=== PATIENT | female | born 1930 | race Caucasian/White ===

== ENCOUNTER 2016-06-13 11:48 | Inpatient (IN) | payer OTHER, MEDICARE ==
[~2016-06-13] VITALS: Ht 160 cm; Wt 75.2 kg
[~2016-06-13 11:48] MED LIST: BP MED
[2016-06-13 11:54] VITALS: BP 140/67; PULSE 86; RESP 18; TEMP 98.8; O2SAT 96
--- NOTE | 2016-06-13 12:07 | PD ---
HPI Chief Complaint: Injury Time Seen by Provider: 12:07 Travel History International Travel<30 days: No Contact w/Intl Traveler<30days: No Traveled to known affect area: No History of Present Illness HPI 85-year-old female presents to the emergency department via EMS with complaint of a skin tear to her right lower leg that occurred today. She sat down into her walker and she scraped her leg causing a skin tear. She did not fall to the ground, hit her head, or lose consciousness. Denies paresthesias, loss of sensation, decreased range of motion, decreased strength to the affected extremity. Denies fever, chills, nausea, vomiting. Reports being up-to-date on her tetanus vaccination. Patient lives at home alone and has no one helping take care of her. Patient has extremely foul odor and is disheveled. She has a wound to the top of her right foot and she says it is from her shoes. History of hypertension. Dr. Sen is primary care provider. [facility] Past Medical History Blood Disorders: No Cancer: No Cardiovascular Problems: Yes Diminished Hearing: No Endocrine: No Genitourinary: No Hypertension: Yes Immune Disorder: No Musculoskeletal: No Neurologic: Yes Psychiatric: No Reproductive: No Respiratory: Yes Past Surgical History Abdominal Surgery: No Cardiac Surgery: No Ear Surgery: No Endocrine Surgery: No Genitourinary Surgery: No Gynecologic Surgery: No Thoracic Surgery: No Social History Alcohol Use: No Tobacco Use: No Substance Use: No Allergies-Medications (Allergen,Severity, Reaction): Coded Allergies: No Known Allergies (Verified , 11/20/08) Reported Meds & Prescriptions Reported Meds & Active Scripts Active Reported [Bp Med] Review of Systems Except as stated in HPI: all other systems reviewed are Neg Physical Exam Narrative GENERAL: Pleasant, Foul-smelling, disheveled, elderly female patient, in no acute distress; afebrile, nontoxic-appearing SKIN: Warm and dry. Right lateral taylor with small skin tear; areas without erythema, edema; with minimal amount of bright red drainage. Dorsal aspect of the right foot with what appears to be a pressure ulcer. Right lower extremity supple and nontender with sensory intact. Bilateral lower extremities with 2+ pitting edema; without erythema. Bilateral feet and toenails unkept. HEAD: Atraumatic. Normocephalic. EYES: Pupils equal and round. No scleral icterus. No injection or drainage. ENT: Mucosa pink and moist. Airway patent. NECK: Trachea midline. CARDIOVASCULAR: Regular rate and rhythm. No murmur appreciated. RESPIRATORY: No accessory muscle use. Breath Sounds clear and equal bilaterally. No retractions or tachypnea. GASTROINTESTINAL: Rounded. MUSCULOSKELETAL: No obvious deformities. No clubbing. No cyanosis. No edema. NEUROLOGICAL: Awake and alert. Oriented 3. No obvious cranial nerve deficits. Motor grossly within normal limits. Normal speech. PSYCHIATRIC: Appropriate mood and affect; insight and judgment normal. Data Data Last Documented VS Vital Signs Date Time Temp Pulse Resp B/P Pulse Ox O2 Delivery O2 Flow Rate FiO2 06/13/16 11:54 98.8 86 18 140/67 96 Orders Basic Metabolic Panel (Bmp) (06/13/16 12:09) Complete Blood Count With Diff (06/13/16 12:09) Wound Care (06/13/16 12:09) Wound Care (06/13/16 12:09) Electrocardiogram (06/13/16 13:29) B-Type Natriuretic Peptide (06/13/16 13:29) Ckmb (Isoenzyme) Profile (06/13/16 13:29) Troponin I (06/13/16 13:29) Act Partial Throm Time (Ptt) (06/13/16 13:29) Prothrombin Time / Inr (Pt) (06/13/16 13:29) Urinalysis - C+S If Indicated (06/13/16 13:29) Chest, Single Ap (06/13/16 13:29) Ct Brain W/O Iv Contrast(Rout) (06/13/16 13:29) Ct Cerv Spine W/O Contrast (06/13/16 13:29) Ecg Monitoring (06/13/16 13:29) Iv Access Insert/Monitor (06/13/16 13:29) Oximetry (06/13/16 13:29) Sodium Chloride 0.9% Flush (Ns Flush) (06/13/16 13:30) Ankle, Complete ([id number]) (06/13/16 ) Foot, Complete ([id number]) (06/13/16 ) Foot, Complete ([id number]) (06/13/16 ) Ankle, Complete ([id number]) (06/13/16 ) Hepatic Functional Panel (06/13/16 13:29) Blood Culture (06/13/16 13:36) Lactic Acid (06/13/16 13:36) Wound Culture And Gram Stain (06/13/16 13:49) Labs Laboratory Tests Test 06/13/16 06/13/16 06/13/16 12:20 13:40 13:45 White Blood Count 6.3 TH/MM3 Red Blood Count 4.72 MIL/MM3 Hemoglobin 12.4 GM/DL Hematocrit 37.9 % Mean Corpuscular Volume 80.3 FL Mean Corpuscular Hemoglobin 26.2 PG Mean Corpuscular Hemoglobin 32.6 % Concent Red Cell Distribution Width 15.0 % Platelet Count 266 TH/MM3 Mean Platelet Volume 7.3 FL Neutrophils (%) (Auto) 83.8 % Lymphocytes (%) (Auto) 6.9 % Monocytes (%) (Auto) 7.8 % Eosinophils (%) (Auto) 0.7 % Basophils (%) (Auto) 0.8 % Neutrophils # (Auto) 5.3 TH/MM3 Lymphocytes # (Auto) 0.4 TH/MM3 Monocytes # (Auto) 0.5 TH/MM3 Eosinophils # (Auto) 0.0 TH/MM3 Basophils # (Auto) 0.0 TH/MM3 CBC Comment DIFF FINAL Differential Comment Sodium Level 139 MEQ/L Potassium Level 4.9 MEQ/L Chloride Level 103 MEQ/L Carbon Dioxide Level 31.3 MEQ/L Anion Gap 5 MEQ/L Blood Urea Nitrogen 15 MG/DL Creatinine 0.95 MG/DL Estimat Glomerular Filtration 56 ML/MIN Rate Random Glucose 75 MG/DL Calcium Level 9.2 MG/DL Prothrombin Time 11.0 SEC Prothromb Time International 1.0 RATIO Ratio Activated Partial 27.5 SEC Thromboplast Time Lactic Acid Level 0.7 mmol/L MDM Medical Decision Making Medical Screen Exam Complete: Yes Emergency Medical Condition: Yes Medical Record Reviewed: Yes Differential Diagnosis Failure to thrive, skin tear, abrasion, pressure ulcer Narrative Course 85-year-old female arrives via EMS and appears to be unable to care for herself. She smells of urine and is disheveled. She has a skin tear to the right lower axillary. She has what appears to be a pressure ulcer from her shoe to the dorsal aspect of the right foot. The right lower extremity is supple and nontender to plus pedal pulses and sensory intact without erythema or edema. Bilateral toenails are unkept. Patient afebrile vital signs are stable. She denies fever, chills, nausea, vomiting. Bilateral lower extremities with 2+ pitting edema. History of hypertension. Dr. Sen is primary care provider. I initially evaluated the patient, and the patient will be moved to a medical bed for further treatment and evaluation and disposition will be decided by care provider assuming care. See their note for patient disposition. Luly Tucker Jun 13, 2016 12:07
[2016-06-13 12:33] LABS: AUTOMATED NEUTROPHIL # 5.3 TH/MM3 (1.8-7.7); BASOPHIL % 0.8 % (0.0-2.0); EOSINOPHIL % 0.7 % (0.0-4.0); HEMATOCRIT 37.9 % (35.0-46.0); HEMO FLAGS DIFF FINAL; LYMPH % 6.9 % (9.0-44.0); LYMPHOCYTE # 0.4 TH/MM3 (1.0-4.8); MEAN CELL VOLUME 80.3 FL (80.0-100.0); MEAN CORPUSCULAR HEMOGLOBIN 26.2 PG (27.0-34.0); MEAN CORPUSCULAR HGB CONC 32.6 % (32.0-36.0); MONO % 7.8 % (0.0-8.0); NEUT % 83.8 % (16.0-70.0); PLATELET COUNT 266 TH/MM3 (150-450); RED BLOOD COUNT 4.72 MIL/MM3 (4.00-5.30); WHITE BLOOD COUNT 6.3 TH/MM3 (4.0-11.0)
[2016-06-13 12:55] LABS: BICARBONATE 31.3 MEQ/L (21.0-32.0)
[2016-06-13 12:58] LABS: POTASSIUM 4.9 MEQ/L (3.5-5.1)
[2016-06-13] MEDS ORDERED: SODIUM CHLORIDE 0.9% FLUSH 5 ML FLUSH IVF PRN (13:30)
--- NOTE | 2016-06-13 13:43 | PD ---
Physical Exam Exam Limitations: Poor Historian Narrative Patient initially was seen in the ambulance [place]. Please see previous providers note. Patient reports that she can emergency department secondary to her feet that she reports they have been like this for 2-3 months. Patient states she is not seeing a nurse head for this. Patient denies any pain initially, however after examination patient reports tenderness in her bilateral ankles. Patient states she injured her right leg by scraping it on her wheelchair causing a small skin tear. Patient states she also irritation of her right foot that is not painful states secondary to her shoes. Patient states she has not seen her primary care doctor at almost 4 months. Patient reports dyspnea on exertion. Patient states she can walk approximately for 2 minutes before needing to rest for approximately 5 minutes. Patient reports is been going on since she had her stroke almost year ago. Patient reports she does have COPD as well. Patient initially denies any falls. However after patient's [id number] presents to the emergency department if she reports that she received a phone call this morning stating that the patient and found on the floor after a fall at her home. Patient states that she slipped trying to sit in her wheelchair causing the fall sometime last night. Patient denies chest pain, palpitations, shortness of breath outside of her normal, abdominal pain, loss of consciousness, headache, or numbness or tingling anywhere. GENERAL: Well-developed, overly nourished, in no acute distress, and non-ill appearing. SKIN: Warm and dry. Erythematous discoloration bilateral lower extremities. Skin tear noted on proximal anterior right taylor and chronic appearing ulcer versus calcium buildup dorsal aspect of right foot appears consistent from where her shoe has been rubbing it is open with scant drainage noted. HEAD: Atraumatic. Normocephalic. EYES: Pupils equal and round. EOMI. No scleral icterus. No injection or drainage. ENT: No nasal bleeding or discharge. Mucous membranes pink and moist. NECK: Trachea midline. Supple. No nuclear rigidity. CARDIOVASCULAR: Regular rate and rhythm. No murmur appreciated. Dorsal pulses 2+ intact bilaterally. RESPIRATORY: No accessory muscle use. No respiratory distress. Decreased breath sounds in scant expiratory wheezing noted throughout.. GASTROINTESTINAL: Abdomen soft, non-tender, nondistended. Hepatic and splenic margins not palpable. No pulsatile mass. MUSCULOSKELETAL: Obvious deformities bilateral toes with overgrown toenails. No clubbing. No cyanosis. 1+ pedal edema bilateral lower extremities. Hip: FROM and equal BL with passive flexion, extension, Abduction, Adduction, and internal/external rotation. Pulses equal BL distal to injury. Capillary refill less than 2 seconds distal to injury and equal BL. FROM distal to injury and equal BL. Strength distal to injury equal BL. NV intact distal to injury and equal BL. Plantar flexion and dorsal flexion equal BL. Dorsal pulses equal BL. NEUROLOGICAL: Awake and alert. No obvious cranial nerve deficits. Motor grossly within normal limits. Normal speech. PSYCHIATRIC: Appropriate mood and affect; insight and judgment normal. Data Data Last Documented VS Vital Signs Date Time Temp Pulse Resp B/P Pulse Ox O2 Delivery O2 Flow Rate FiO2 06/13/16 11:54 98.8 86 18 140/67 96 Orders Basic Metabolic Panel (Bmp) (06/13/16 12:09) Complete Blood Count With Diff (06/13/16 12:09) Wound Care (06/13/16 12:09) Wound Care (06/13/16 12:09) Electrocardiogram (06/13/16 13:29) B-Type Natriuretic Peptide (06/13/16 13:29) Ckmb (Isoenzyme) Profile (06/13/16 13:29) Troponin I (06/13/16 13:29) Act Partial Throm Time (Ptt) (06/13/16 13:29) Prothrombin Time / Inr (Pt) (06/13/16 13:29) Urinalysis - C+S If Indicated (06/13/16 13:29) Chest, Single Ap (06/13/16 13:29) Ct Brain W/O Iv Contrast(Rout) (06/13/16 13:29) Ct Cerv Spine W/O Contrast (06/13/16 13:29) Ecg Monitoring (06/13/16 13:29) Iv Access Insert/Monitor (06/13/16 13:29) Oximetry (06/13/16 13:29) Sodium Chloride 0.9% Flush (Ns Flush) (06/13/16 13:30) Ankle, Complete ([id number]) (06/13/16 ) Foot, Complete ([id number]) (06/13/16 ) Foot, Complete ([id number]) (06/13/16 ) Ankle, Complete ([id number]) (06/13/16 ) Hepatic Functional Panel (06/13/16 13:29) Blood Culture (06/13/16 13:36) Lactic Acid (06/13/16 13:36) Wound Culture And Gram Stain (06/13/16 13:49) CKMB (06/13/16 13:40) CKMB% (06/13/16 13:40) Piperacil-Tazo 3.375 Gm Premix (Zosyn 3. (06/13/16 16:00) Labs Laboratory Tests Test 06/13/16 06/13/16 06/13/16 12:20 13:40 13:45 White Blood Count 6.3 TH/MM3 Red Blood Count 4.72 MIL/MM3 Hemoglobin 12.4 GM/DL Hematocrit 37.9 % Mean Corpuscular Volume 80.3 FL Mean Corpuscular Hemoglobin 26.2 PG Mean Corpuscular Hemoglobin 32.6 % Concent Red Cell Distribution Width 15.0 % Platelet Count 266 TH/MM3 Mean Platelet Volume 7.3 FL Neutrophils (%) (Auto) 83.8 % Lymphocytes (%) (Auto) 6.9 % Monocytes (%) (Auto) 7.8 % Eosinophils (%) (Auto) 0.7 % Basophils (%) (Auto) 0.8 % Neutrophils # (Auto) 5.3 TH/MM3 Lymphocytes # (Auto) 0.4 TH/MM3 Monocytes # (Auto) 0.5 TH/MM3 Eosinophils # (Auto) 0.0 TH/MM3 Basophils # (Auto) 0.0 TH/MM3 CBC Comment DIFF FINAL Differential Comment Sodium Level 139 MEQ/L Potassium Level 4.9 MEQ/L Chloride Level 103 MEQ/L Carbon Dioxide Level 31.3 MEQ/L Anion Gap 5 MEQ/L Blood Urea Nitrogen 15 MG/DL Creatinine 0.95 MG/DL Estimat Glomerular Filtration 56 ML/MIN Rate Random Glucose 75 MG/DL Calcium Level 9.2 MG/DL Prothrombin Time 11.0 SEC Prothromb Time International 1.0 RATIO Ratio Activated Partial 27.5 SEC Thromboplast Time Total Bilirubin 0.6 MG/DL Direct Bilirubin 0.2 MG/DL Indirect Bilirubin 0.4 MG/DL Aspartate Amino Transf 44 U/L (AST/SGOT) Alanine Aminotransferase 28 U/L (ALT/SGPT) Alkaline Phosphatase 139 U/L Total Creatine Kinase 233 U/L Creatine Kinase MB 9.0 NG/ML Creatine Kinase MB % 3.9 % Troponin I 0.02 NG/ML B-Type Natriuretic Peptide 72 PG/ML Total Protein 7.0 GM/DL Albumin 2.5 GM/DL Lactic Acid Level 0.7 mmol/L [facility] Supervised Visit with GREGORIA: No Differential Diagnosis Cellulitis, osteomyelitis, wound infection, COPD exacerbation, CHF exacerbation , rhabdomyolysis, other Narrative Course Patient was seen and examined. Initial laboratory and radiological studies were obtained and reviewed. Discussed patient with Dr. Corbin, who saw and evaluated the patient is in agreement with plan of care and disposition. Physician Communication Physician Communication [id number] Reilly, who is agreeable to admit the patient. Diagnosis Primary Impression: Altered mental status Qualified Code: R41.82 - Altered mental status, unspecified altered mental status type Additional Impressions: Unwitnessed fall Wound infection Bilateral lower extremity edema Elevated CK Admitting Information Admitting Physician Requests: Admit Condition: Stable Rod Crockett Jun 13, 2016 13:43
[2016-06-13 14:26] LABS: APTT (PATIENT) 27.5 SEC (24.3-30.1)
[2016-06-13 14:31] LABS: INDIRECT BILIRUBIN 0.4 MG/DL (0.0-0.8); TOTAL BILIRUBIN ADULT 0.6 MG/DL (0.2-1.0)
--- NOTE | 2016-06-13 15:03 | RADRPT ---
EXAM DATE/TIME: 06/13/2016 14:09 [facility] COMPARISON: No previous studies available for comparison. INDICATIONS : Left ankle pain, swelling and redness. MEDICAL HISTORY : None. SURGICAL HISTORY : None. ENCOUNTER: Initial ACUITY: 2 weeks PAIN SCORE: 2/10 LOCATION: Right ankle FINDINGS: Severe periarticular soft tissue swelling is identified. The bony structures are intact without clear evidence of fracture. The bones are markedly demineraliz ed. There are no erosive or destructive changes. Hindfoot alignment appears intact. CONCLUSION: Soft tissue swelling without evidence of displaced fracture or dislocation. Significant bony demineralization. Vernon Almonte MD on June 13, 2016 at 14:59 Board Certified Radiologist. This report was verified electronically.
--- NOTE | 2016-06-13 15:08 | RADRPT ---
EXAM DATE/TIME: 06/13/2016 14:11 [facility] COMPARISON: No previous studies available for comparison. INDICATIONS : Right foot pain, swelling, redness. MEDICAL HISTORY : None. SURGICAL HISTORY : None. ENCOUNTER: Initial ACUITY: 2 weeks PAIN SCORE: 2/10 LOCATION: Right foot FINDINGS: Severe soft tissue swelling is identified extending from the ankle into the foot. The bony structures are markedly demineralized. The proximal interphalangeal joints of the great toe and second and third toes are ankylosed. Bony structures are otherwise intact. There are no destructive changes there is no evidence of acute fracture. CONCLUSION: Soft tissue swelling without clear evidence of fracture or destructive bone changes. Severe bone demineralization. 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 Vernon Almonte MD on June 13, 2016 at 15:03 Board Certified Radiologist. This report was verified electronically.
--- NOTE | 2016-06-13 15:09 | RADRPT ---
EXAM DATE/TIME: 06/13/2016 14:14 [facility] COMPARISON: No previous studies available for comparison. INDICATIONS : Pain, swelling, redness of left foot. MEDICAL HISTORY : None. SURGICAL HISTORY : None. ENCOUNTER: Initial ACUITY: 2 weeks PAIN SCORE: 2/10 LOCATION: Left foot FINDINGS: There is mild soft tissue swelling involving the ankle and hindfoot. Bones are significantly demineralized. Hammertoe deformity is identified at the second through fifth toes. Bony structures are intact without evidence of fracture, dislocation or destructive changes. CONCLUSION: Soft tissue swelling without evidence of acute fracture or destructive bone changes. Hammertoe deformity the toes. Vernon Almonte MD on June 13, 2016 at 15:05 Board Certified Radiologist. This report was verified electronically.
--- NOTE | 2016-06-13 15:10 | RADRPT ---
EXAM DATE/TIME: 06/13/2016 14:15 [facility] COMPARISON: No previous studies available for comparison. INDICATIONS : Left ankle pain, redness and swelling. MEDICAL HISTORY : None. SURGICAL HISTORY : None. ENCOUNTER: Initial ACUITY: 2 weeks PAIN SCORE: 1/10 LOCATION: Left ankle FINDINGS: There is marked soft tissue swelling of the ankle. The bony structures are intact. Ankle mortise is w ell-maintained. Bones are seen definitely demineralized. Arterial calcifications noted. CONCLUSION: Soft tissue swelling without evidence of acute fracture or destructive bone changes. Significant bone demineralization. Calcific atherosclerotic vascular disease. Vernon Almonte MD on June 13, 2016 at 15:07 Board Certified Radiologist. This report was verified electronically.
--- NOTE | 2016-06-13 15:33 | RADRPT ---
EXAM DATE/TIME: 06/13/2016 14:50 [facility] COMPARISON: No previous studies available for comparison. INDICATIONS : Trauma. Fall. RADIATION DOSE: 56.35 CTDIvol (mGy) MEDICAL HISTORY : Cardiovascular disease. Chronic obstructive pulmonary disease. Cerebrovascular disease. Hypertension. SURGICAL HISTORY : None. ENCOUNTER: Initial ACUITY: 1 day PAIN SCALE: 0/10 LOCATION: cranial TECHNIQUE: Multiple contiguous axial images were obtained of the head. Using automated exposure control and adj ustment of the mA and/or kV according to patient size, radiation dose was kept as low as reasonably a chievable to obtain optimal diagnostic quality images. FINDINGS: CEREBRUM: The ventricles are normal for age. No evidence of midline shift, mass lesion, hemorrhage or acute in farction. No extra-axial fluid collections are seen. POSTERIOR FOSSA: The cerebellum and brainstem are intact. The 4th ventricle is midline. The cerebellopontine angle i s unremarkable. EXTRACRANIAL: The visualized portion of the orbits is intact. SKULL: The calvaria is intact. No evidence of skull fracture. CONCLUSION: No acute disease. Saeed Kaur MD FACR on June 13, 2016 at 15:31 Board Certified Radiologist. This report was verified electronically.
--- NOTE | 2016-06-13 15:38 | RADRPT ---
EXAM DATE/TIME: 06/13/2016 14:07 [facility] COMPARISON: No previous studies available for comparison. INDICATIONS: Chest pain. MEDICAL HISTORY: None. SURGICAL HISTORY: None. ENCOUNTER: Initial ACUITY: 1 day PAIN SCORE: 2/10 LOCATION: Bilateral chest FINDINGS: Thoracolumbar scoliosis is noted. Heart is enlarged. Mild interstitial edema is present. Degenerat cole changes seen about both shoulders worse on the left than the right. CONCLUSION: Scoliosis otherwise negative. Saeed Kaur MD FACR on June 13, 2016 at 14:53 Board Certified Radiologist. This report was verified electronically.
--- NOTE | 2016-06-13 15:50 | RADRPT ---
EXAM DATE/TIME: 06/13/2016 14:52 [facility] COMPARISON: No previous studies available for comparison. INDICATIONS: Trauma. Fall. RADIATION DOSE: 28.17 CTDIvol (mGy) MEDICAL HISTORY: Cardiovascular disease. Chronic obstructive pulmonary disease. Cerebrovascular disease. Hypertension. SURGICAL HISTORY: None. ENCOUNTER: Initial ACUITY: 1 day PAIN SCALE: 0/10 LOCATION: Neck TECHNIQUE: Volumetric scanning of the cervical spine was performed. Multiplanar reconstructions in the sagittal, coronal and oblique axial planes were performed. Using automated exposure control and adjustment o f the mA and/or kV according to patient size, radiation dose was kept as low as reasonably achievable to obtain optimal diagnostic quality images. FINDINGS: There are degenerative changes in the cervical spine. C1 and C2 are intact. C2-C3: Mild uncinate ridging is present without significant spinal stenosis. There is minimal left-sided ne ural foramina encroachment. C3-C4: Moderate uncinate ridging is present with mild bilateral neural foraminal encroachment. C4-C5: Moderate uncinate ridging is present with moderate spinal stenosis with mild bilateral neural foramin al encroachment. C5-C6: Mild uncinate ridging is present with minimal bilateral neural foraminal encroachment. C6-C7: Mild uncinate ridging is present. There is no significant spinal stenosis. Neural foramina adequate . C7-T1: The bony spinal canal is normal in size. No evidence of disc bulge or herniation. The neural forami na are bilaterally patent. CONCLUSION: Degenerative changes as described above. There is no evidence for fracture. Saeed Kaur MD FACR on June 13, 2016 at 15:37 Board Certified Radiologist. This report was verified electronically.
[2016-06-13] MEDS ORDERED: PIPERACIL-TAZO 3.375 GM PREMIX 50 ML IV ONE (16:00)
--- NOTE | 2016-06-13 16:18 | PD ---
Physical Exam Date Seen by Provider: Jun 13, 2016 Time Seen by Provider: 14:00 Narrative I, Dr. Corbin, have reviewed the advance practice practitioner's documentation and am in agreement, met with the patient face to face, made the diagnosis, and the medical decision making was done by me. *My assessment and Findings: Patient seen and evaluated with PA, appears to be having hard time living on her own, more disoriented according to daughter, falls, failure to thrive. On exam, she appears disheveled, has a poorly healing wound on the right foot which appears to be draining pleura material. IV antibiotics initiated in the ER. Cultures have been drawn. She does not appear to have any intracranial injuries. Lab work indicates elevations of CPK , at this point, my plan would be to admit the patient for further evaluation and treatment for infection and failure to thrive. Case discussed with hospitalist service for admission. Laboratory Tests Test 06/13/16 06/13/16 12:20 13:40 Mean Corpuscular Hemoglobin 26.2 PG (27.0-34.0) Neutrophils (%) (Auto) 83.8 % (16.0-70.0) Lymphocytes (%) (Auto) 6.9 % (9.0-44.0) Lymphocytes # (Auto) 0.4 TH/MM3 (1.0-4.8) Estimat Glomerular Filtration 56 ML/MIN (>89) Rate Aspartate Amino Transf 44 U/L (15-37) (AST/SGOT) Alkaline Phosphatase 139 U/L (45-117) Total Creatine Kinase 233 U/L (26-192) Creatine Kinase MB 9.0 NG/ML (0.5-3.6) Albumin 2.5 GM/DL (3.4-5.0) Last [address] 06/13/16 1329 Signed Impressions: Service Date/Time: Monday, June 13, 2016 14:50 - CONCLUSION: No acute disease. Saeed Kaur MD FACR Foot X-Ray 06/13/16 0000 Signed Impressions: Service Date/Time: Monday, June 13, 2016 14:11 - CONCLUSION: Soft tissue swelling without clear evidence of fracture or destructive bone changes. Severe bone demineralization. 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 Vernon Almonte MD Foot X-Ray 06/13/16 0000 Signed Impressions: Service Date/Time: Monday, June 13, 2016 14:14 - CONCLUSION: Soft tissue swelling without evidence of acute fracture or destructive bone changes. Hammertoe deformity the toes. Vernon Almonte MD Ankle X-Ray 06/13/16 0000 Signed Impressions: Service Date/Time: Monday, June 13, 2016 14:09 - CONCLUSION: Soft tissue swelling without evidence of displaced fracture or dislocation. Significant bony demineralization. Vernon Almonte MD Ankle X-Ray 06/13/16 0000 Signed Impressions: Service Date/Time: Monday, June 13, 2016 14:15 - CONCLUSION: Soft tissue swelling without evidence of acute fracture or destructive bone changes. Significant bone demineralization. Calcific atherosclerotic vascular disease. Vernon Almonte MD Data Data Last Documented VS Vital Signs Date Time Temp Pulse Resp B/P Pulse Ox O2 Delivery O2 Flow Rate FiO2 06/13/16 11:54 98.8 86 18 140/67 96 Orders Basic Metabolic Panel (Bmp) (06/13/16 12:09) Complete Blood Count With Diff (06/13/16 12:09) Wound Care (06/13/16 12:09) Wound Care (06/13/16 12:09) Electrocardiogram (06/13/16 13:29) B-Type Natriuretic Peptide (06/13/16 13:29) Ckmb (Isoenzyme) Profile (06/13/16 13:29) Troponin I (06/13/16 13:29) Act Partial Throm Time (Ptt) (06/13/16 13:29) Prothrombin Time / Inr (Pt) (06/13/16 13:29) Urinalysis - C+S If Indicated (06/13/16 13:29) Chest, Single Ap (06/13/16 13:29) Ct Brain W/O Iv Contrast(Rout) (06/13/16 13:29) Ct Cerv Spine W/O Contrast (06/13/16 13:29) Ecg Monitoring (06/13/16 13:29) Iv Access Insert/Monitor (06/13/16 13:29) Oximetry (06/13/16 13:29) Sodium Chloride 0.9% Flush (Ns Flush) (06/13/16 13:30) Ankle, Complete ([id number]) (06/13/16 ) Foot, Complete ([id number]) (06/13/16 ) Foot, Complete ([id number]) (06/13/16 ) Ankle, Complete ([id number]) (06/13/16 ) Hepatic Functional Panel (06/13/16 13:29) Blood Culture (06/13/16 13:36) Lactic Acid (06/13/16 13:36) Wound Culture And Gram Stain (06/13/16 13:49) CKMB (06/13/16 13:40) CKMB% (06/13/16 13:40) Piperacil-Tazo 3.375 Gm Premix (Zosyn 3. (06/13/16 16:00) Alcohol (Ethanol) (06/13/16 16:09) Admit Order (Ed Use Only) (06/13/16 16:09) Labs Laboratory Tests Test 06/13/16 06/13/16 06/13/16 12:20 13:40 13:45 White Blood Count 6.3 TH/MM3 Red Blood Count 4.72 MIL/MM3 Hemoglobin 12.4 GM/DL Hematocrit 37.9 % Mean Corpuscular Volume 80.3 FL Mean Corpuscular Hemoglobin 26.2 PG Mean Corpuscular Hemoglobin 32.6 % Concent Red Cell Distribution Width 15.0 % Platelet Count 266 TH/MM3 Mean Platelet Volume 7.3 FL Neutrophils (%) (Auto) 83.8 % Lymphocytes (%) (Auto) 6.9 % Monocytes (%) (Auto) 7.8 % Eosinophils (%) (Auto) 0.7 % Basophils (%) (Auto) 0.8 % Neutrophils # (Auto) 5.3 TH/MM3 Lymphocytes # (Auto) 0.4 TH/MM3 Monocytes # (Auto) 0.5 TH/MM3 Eosinophils # (Auto) 0.0 TH/MM3 Basophils # (Auto) 0.0 TH/MM3 CBC Comment DIFF FINAL Differential Comment Sodium Level 139 MEQ/L Potassium Level 4.9 MEQ/L Chloride Level 103 MEQ/L Carbon Dioxide Level 31.3 MEQ/L Anion Gap 5 MEQ/L Blood Urea Nitrogen 15 MG/DL Creatinine 0.95 MG/DL Estimat Glomerular Filtration 56 ML/MIN Rate Random Glucose 75 MG/DL Calcium Level 9.2 MG/DL Prothrombin Time 11.0 SEC Prothromb Time International 1.0 RATIO Ratio Activated Partial 27.5 SEC Thromboplast Time Total Bilirubin 0.6 MG/DL Direct Bilirubin 0.2 MG/DL Indirect Bilirubin 0.4 MG/DL Aspartate Amino Transf 44 U/L (AST/SGOT) Alanine Aminotransferase 28 U/L (ALT/SGPT) Alkaline Phosphatase 139 U/L Total Creatine Kinase 233 U/L Creatine Kinase MB 9.0 NG/ML Creatine Kinase MB % 3.9 % Troponin I 0.02 NG/ML B-Type Natriuretic Peptide 72 PG/ML Total Protein 7.0 GM/DL Albumin 2.5 GM/DL Lactic Acid Level 0.7 mmol/L [facility] Medical Record Reviewed: Yes Supervised Visit with GREGORIA: Yes Diagnosis Primary Impression: Altered mental status Qualified Code: R41.82 - Altered mental status, unspecified altered mental status type Additional Impressions: Bilateral lower extremity edema Wound infection Elevated CK Unwitnessed fall Admitting Information Admitting Physician Requests: Admit Condition: Stable Mila Corbin MD Jun 13, 2016 16:18
[2016-06-13 16:29] LABS: BLOOD, URINE NEG (NEG); COMMENT (UR) CULT NOT INDICATED; CULTURE IF INDICATED CULT NOT INDICATED; GLUCOSE,URINE NEG (NEG); KETONE, URINE 10 mg/dL (NEG); NITRITE,URINE NEG (NEG); PH, URINE 5.5 (5.0-8.5); SQUAMOUS EPITHELIAL CELL URINE <1 /hpf (0-5); URINE COLOR YELLOW (YELLW/STRAW)
[2016-06-13 16:30] VITALS: BP 141/63; PULSE 86; RESP 18; O2SAT 95
[2016-06-13] MEDS ORDERED: ACETAMINOPHEN/HYDROcodone 325 MG/5 MG TAB PO PRN (17:00)
[2016-06-13] MEDS ORDERED: Vancomycin Consult Pharmacy 1 EA OTHER SCH (17:00)
[2016-06-13] MEDS ORDERED: MAGNESIUM HYDROXIDE SUSP 30 ML CUP PO PRN (17:00)
[2016-06-13] MEDS ORDERED: SODIUM CHLORIDE 0.9% FLUSH 5 ML FLUSH FLUSH PRN (17:00)
[2016-06-13] MEDS ORDERED: ONDANSETRON HCL 4 MG/2 ML VIAL IVP PRN (17:00)
[2016-06-13] MEDS ORDERED: BISACODYL 10 MG SUPP PR PRN (17:00)
[2016-06-13] MEDS ORDERED: SENNOSIDES 8.6 MG TAB PO PRN (17:00)
[2016-06-13] MEDS ORDERED: ACETAMINOPHEN/HYDROcodone 325 MG/7.5 MG TAB PO PRN (17:00)
[2016-06-13] MEDS ORDERED: VANCOMYCIN INJ 1,000 MG in SODIUM CHLOR 0.9% 250 ML INJ 250 ML IV SCH (17:00)
[2016-06-13] MEDS ORDERED: NALOXONE HCL 0.4 MG/ML AMP IV PRN (17:00)
[2016-06-13] MEDS ORDERED: TEMAZEPAM 15 MG CAP PO PRN (17:00)
[2016-06-13] MEDS ORDERED: ACETAMINOPHEN 325 MG TAB PO PRN (17:00)
--- NOTE | 2016-06-13 17:00 | HHI.HP ---
[facility] No Primary Care Physician Admission Diagnosis altered mental status, wound infection, unwitnessed fall, Diagnoses: Chief Complaint: Lower extremity wound and skin tear Travel History International Travel<30 Days: No Contact w/Intl Traveler <30 Da: No Traveled to Known Affected Are: No History of Present Illness 85 years old female who lives by herself, relatively poor historian, presented to the ED with a complaint of multiple skin tear on her lower extremity mostly on the right, after she falls from her walker. Patient is oriented to the month but not the year, also to the person but the place. Her [id number] was at the bedside. Patient denied losing consciousness, hitting her head, no fever or chills, no chest pain or short of breath. She told me she takes water pills for her blood pressure and leg swelling but denied heart failure, also denied any history of coronary artery disease, heart catheter. No abdominal pain diarrhea constipation dysuria urgency or frequency Review of Systems Other All 10 systems reviewed and was positive for what is mentioned in history of present illness otherwise negative Past Family Social History Past Medical History Hypertension Questionable heart failure Past Surgical History Denied previous surgeries Allergies: Coded Allergies: No Known Allergies (Verified , 11/20/08) Family History Unaware of significant medical problem runs in her family Social History Patient quit smoking many years ago, no alcohol or illicit drug abuse Physical Exam Vital Signs Vital Signs Date Time Temp Pulse Resp B/P Pulse Ox O2 Delivery O2 Flow Rate FiO2 06/13/16 11:54 98.8 86 18 140/67 96 Physical Exam - GENERAL: This is a well-nourished, well-developed patient, in no apparent distress., Heart hearing SKIN: No rashes, ecchymoses or lesions. Cool and dry. HEAD: Atraumatic. Normocephalic. No temporal or scalp tenderness. EYES: Pupils equal round and reactive. Extraocular motions intact. No scleral icterus. No injection or drainage. ENT: Nose without bleeding, purulent drainage or septal hematoma. Throat without erythema, tonsillar hypertrophy or exudate. Uvula midline. Airway patent. NECK: Trachea midline. No JVD or lymphadenopathy. Supple, nontender, no meningeal signs. CARDIOVASCULAR: Regular rate and rhythm without murmurs, gallops, or rubs. RESPIRATORY: Clear to auscultation. Breath sounds equal bilaterally. No wheezes , rales, or rhonchi. GASTROINTESTINAL: Abdomen soft, non-tender, nondistended. No hepato-splenomegaly , or palpable masses. No guarding. MUSCULOSKELETAL: Bilateral lower extremity with multiple skin tear, +1 edema, multiple thick long ingrown nail curve bilaterally worse on the right toe NEUROLOGICAL: Awake and alert. Moves all extremities, heart hearing Laboratory Laboratory Tests Test 06/13/16 06/13/16 06/13/16 06/13/16 12:20 13:40 13:45 15:30 White Blood Count 6.3 Red Blood Count 4.72 Hemoglobin 12.4 Hematocrit 37.9 Mean Corpuscular Volume 80.3 Mean Corpuscular Hemoglobin 26.2 Mean Corpuscular Hemoglobin 32.6 Concent Red Cell Distribution Width 15.0 Platelet Count 266 Mean Platelet Volume 7.3 Neutrophils (%) (Auto) 83.8 Lymphocytes (%) (Auto) 6.9 Monocytes (%) (Auto) 7.8 Eosinophils (%) (Auto) 0.7 Basophils (%) (Auto) 0.8 Neutrophils # (Auto) 5.3 Lymphocytes # (Auto) 0.4 Monocytes # (Auto) 0.5 Eosinophils # (Auto) 0.0 Basophils # (Auto) 0.0 CBC Comment DIFF FINAL Differential Comment Sodium Level 139 Potassium Level 4.9 Chloride Level 103 Carbon Dioxide Level 31.3 Anion Gap 5 Blood Urea Nitrogen 15 Creatinine 0.95 Estimat Glomerular Filtration 56 Rate Random Glucose 75 Calcium Level 9.2 Prothrombin Time 11.0 Prothromb Time International 1.0 Ratio Activated Partial 27.5 Thromboplast Time Total Bilirubin 0.6 Direct Bilirubin 0.2 Indirect Bilirubin 0.4 Aspartate Amino Transf 44 (AST/SGOT) Alanine Aminotransferase 28 (ALT/SGPT) Alkaline Phosphatase 139 Total Creatine Kinase 233 Creatine Kinase MB 9.0 Creatine Kinase MB % 3.9 Troponin I 0.02 B-Type Natriuretic Peptide 72 Total Protein 7.0 Albumin 2.5 Lactic Acid Level 0.7 Urine Color YELLOW Urine Turbidity CLEAR Urine pH 5.5 Urine Specific Richardson 1.023 Urine Protein TRACE Urine Glucose (UA) NEG Urine Ketones 10 Urine Occult Blood NEG Urine Nitrite NEG Urine Bilirubin NEG Urine Urobilinogen 2.0 Urine Leukocyte Esterase NEG Urine RBC 26 Urine WBC 2 Urine Squamous Epithelial <1 Cells Microscopic Urinalysis Comment CULT NOT INDICATED Date/Time Procedure Status Source Growth 06/13/16 13:45 Gram Stain Received Wound Foot Pending 06/13/16 13:45 Wound Culture Received Wound Foot Pending 06/13/16 13:45 Aerobic Blood Culture Received Blood Peripheral Pending 06/13/16 13:45 Anaerobic Blood Culture Received Blood Peripheral Pending Result Diagram: 06/13/16 1220 06/13/16 1220 Imaging Last Impressions Cervical Spine CT 06/13/16 1329 Signed Impressions: Service Date/Time: Monday, June 13, 2016 14:52 - CONCLUSION: Degenerative changes as described above. There is no evidence for fracture. Saeed Kaur MD FACR Foot X-Ray 06/13/16 0000 Signed Impressions: Service Date/Time: Monday, June 13, 2016 14:11 - CONCLUSION: Soft tissue swelling without clear evidence of fracture or destructive bone changes. Severe bone demineralization. 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 Vernon Almonte MD Ankle X-Ray 06/13/16 0000 Signed Impressions: Service Date/Time: Monday, June 13, 2016 14:09 - CONCLUSION: Soft tissue swelling without evidence of displaced fracture or dislocation. Significant bony demineralization. Venron Almonte MD Assessment and Plan Assessment and Plan Status post fall resulted in bilateral lower extremity wound, skin tear Multiple Ingrown nails worst is the right toe Mild rhabdo mostly due to the fall CPK 132 Subjective history of diuretic use ? Heart failure however BMP within normal limit Increase AST /ALT almost 2:1 denied abusing alcohol will check alcohol level DVT prophylaxis with heparin Plan: Admit for observation Sent for blood culture and wound culture Start on Vancomycin, adjust if no risk for MRSA Wound care consulted as well as podiatry, I called Dr. George and informed him about the patient he has graciously stated he will be seeing her today Vasotec as needed Check hemoglobin A1c, Accu-Chek to monitor blood sugar Discussed Condition With Patient ED physician and the patient's [id number] Meena Reilly MD Jun 13, 2016 17:00
[2016-06-13] MEDS ORDERED: ENALAPRILAT 1.25 MG/ML VIAL IV PUSH PRN (17:15)
--- NOTE | 2016-06-13 17:20 | PD.POD.CON ---
Patient Intake Chief Complaint Generalized foot care evaluation Consult Requested by Dr. Reilly Reason for Consult Evaluation of toenails and wound on dorsal aspect of right foot Primary Care Physician No Primary Care Physician History of Present Illness Patient is an 85-year-old female who lives alone who presented for altered mental status.. Patient has very poor hygiene history. I was asked to evaluate the patient for a wound on the dorsal aspect of the right foot and extremely elongated toenails. Her toenails have feces between them. Coded Allergies: No Known Allergies (Verified , 11/20/08) Preferred Language to Discuss: [place] Barriers to Learning: Cognitive/Written, Emotional, Cognitive/Verbal Vital Signs Date Time Temp Pulse Resp B/P Pulse Ox O2 Delivery O2 Flow Rate FiO2 06/13/16 11:54 98.8 86 18 140/67 96 Pain scale used: 0-10 numeric scale Pain score: 0 Medications Current Medications IV Flush 2 ml 2 ml UNSCH PRN IVF FLUSH AFTER USING IV ACCESS; Start 06/13/16 at 13:30 Piperacillin Sod/ Tazobactam Sod 50 ml @ 100 mls/hr ONCE ONCE IV Last administered on 06/13/16t 16:50; Start 06/13/16 at 16:00; Stop 06/13/16 at 16:29; Status DC Pharmacy Profile Note 0 ml @ 0 mls/hr UNSCH OTHER ; Start 06/13/16 at 17:00; Status UNV Vancomycin HCl/ Sodium Chloride (Vancomycin Inj/ NS 250 ml Inj) 260 ml @ 250 mls/hr Q12H IV ; Start 06/13/16 at 17:00; Status UNV IV Flush (NS Flush) 2 ml UNSCH PRN FLUSH FLUSH AFTER USING IV ACCESS; Start 06/13/16 at 17:00; Status UNV IV Flush (NS Flush) 2 ml BID FLUSH ; Start 06/13/16 at 21:00; Status UNV Acetaminophen (Tylenol) 650 mg Q4H PRN PO TEMP > 100.4; Start 06/13/16 at 17:00 Ondansetron HCl (Zofran Inj) 4 mg Q6H PRN IVP NAUSEA OR VOMITING; Start at 17:00; Status UNV Bisacodyl (Dulcolax Supp) 10 mg DAILY PRN AR CONSTIPATION; Start 06/13/16 at 17: 00 Docusate Sodium (Colace) 100 mg Q12H PO ; Start 06/13/16 at 21:00 Magnesium Hydroxide (Milk Of [place] Liq) 30 ml Q12H PRN PO CONSTIPATION; Start 06/13/16 at 17:00; Status UNV Sennosides (Senokot) 17.2 mg Q12H PRN PO CONSTIPATION; Start 06/13/16 at 17:00; Status UNV Temazepam (Restoril) 15 mg HS PRN PO INSOMNIA; Start 06/13/16 at 17:00; Status UNV Heparin Sodium (Porcine) (Heparin Inj) 5,000 units Q8H SQ ; Start 06/13/16 at 17: 00; Status UNV Acetaminophen/ Hydrocodone Bitart ([place] 5-325 Mg) 1 tab Q4H PRN PO PAIN SCALE 3 TO 5; Start 06/13/16 at 17:00 Acetaminophen/ Hydrocodone Bitart ([place] 7.5-325 Mg) 1 tab Q4H PRN PO PAIN SCALE 6 TO 10; Start 06/13/16 at 17:00 Naloxone HCl (Narcan Inj) 0.4 mg UNSCH PRN IV SEE LABEL COMMENTS; Start at 17:00; Status UNV Past, Family & Social History Past Medical History PFSH Reviewed: Yes Psychiatric: REPORTS HX OF: Other psychiatric history Alcohol Use Alcohol intake: None Review of Systems Notes Dementia Ears/Nose/Mouth/Throat: COMPLAINS OF: Change in hearing Psychiatric: COMPLAINS OF: Change in memory Exam-Podiatry Constitutional General appearance: comfortable Nutritional status: normal Orientation: alert and oriented x3 Dermatological Exam Skin Temp - Right: Within Normal Limits Skin Texture - Right: Within Normal Limits Skin Elasticity - Right: Within Normal Limits Skin Tugor - Right: Within Normal Limits Hair Growth - Right: Within Normal Limits Pigmentation - Right: Within Normal Limits Skin Temp - Left: Within Normal Limits Skin Texture - Left: Within Normal Limits Skin Elasticity - Left: Within Normal Limits Skin Tugor - Left: Within Normal Limits Hair Growth - Left: Within Normal Limits Pigmentation - Left: Within Normal Limits Foot Massess Found: Type, Size She has what appears to be a laceration on the dorsal aspect of the right foot transversely. Appears to be mostly healed but there is some maceration and odor noted. Thickening: Toe #5 (R), Toe #4 (R), Toe #3 (R), Toe #2 (R), Toe #1 (R), Toe #1 (L), Toe #2 (L), Toe #3 (L), Toe #4 (L), Toe #5 (L) Yellow, Brittle, &/or Kristen: Toe #5 (R), Toe #4 (R), Toe #3 (R), Toe #2 (R) , Toe #1 (R), Toe #1 (L), Toe #2 (L), Toe #3 (L), Toe #4 (L), Toe #5 (L) Vascular/Lymphatic Exam R Dorsails Pedis: Palpable L Dorsails Pedis: Palpable R Posterior Tibial: Palpable L Posterior Tibial: Palpable Neurologic Exam Details For Extremities Edema: Left lower extremity: 2+, pitting, foot, ankle, leg Right lower extremity: 2+, foot, ankle, leg Lab and Radiology Results Laboratory Laboratory Tests Test 06/13/16 12:20 White Blood Count 6.3 TH/MM3 Red Blood Count 4.72 MIL/MM3 Hemoglobin 12.4 GM/DL Hematocrit 37.9 % Mean Corpuscular Volume 80.3 FL Mean Corpuscular Hemoglobin 26.2 PG Mean Corpuscular Hemoglobin 32.6 % Concent Red Cell Distribution Width 15.0 % Platelet Count 266 TH/MM3 Mean Platelet Volume 7.3 FL Neutrophils (%) (Auto) 83.8 % Lymphocytes (%) (Auto) 6.9 % Monocytes (%) (Auto) 7.8 % Eosinophils (%) (Auto) 0.7 % Basophils (%) (Auto) 0.8 % Neutrophils # (Auto) 5.3 TH/MM3 Lymphocytes # (Auto) 0.4 TH/MM3 Monocytes # (Auto) 0.5 TH/MM3 Eosinophils # (Auto) 0.0 TH/MM3 Basophils # (Auto) 0.0 TH/MM3 CBC Comment DIFF FINAL Differential Comment Laboratory Tests Test 06/13/16 06/13/16 06/13/16 12:20 13:40 13:45 Sodium Level 139 MEQ/L Potassium Level 4.9 MEQ/L Chloride Level 103 MEQ/L Carbon Dioxide Level 31.3 MEQ/L Anion Gap 5 MEQ/L Blood Urea Nitrogen 15 MG/DL Creatinine 0.95 MG/DL Estimat Glomerular Filtration 56 ML/MIN Rate Random Glucose 75 MG/DL Calcium Level 9.2 MG/DL Total Bilirubin 0.6 MG/DL Direct Bilirubin 0.2 MG/DL Indirect Bilirubin 0.4 MG/DL Aspartate Amino Transf 44 U/L (AST/SGOT) Alanine Aminotransferase 28 U/L (ALT/SGPT) Alkaline Phosphatase 139 U/L Total Creatine Kinase 233 U/L Creatine Kinase MB 9.0 NG/ML Creatine Kinase MB % 3.9 % Troponin I 0.02 NG/ML B-Type Natriuretic Peptide 72 PG/ML Total Protein 7.0 GM/DL Albumin 2.5 GM/DL Lactic Acid Level 0.7 mmol/L Microbiology Date/Time Procedure Status Source Growth 06/13/16 13:40 Aerobic Blood Culture Received Blood Peripheral Pending 06/13/16 13:40 Anaerobic Blood Culture Received Blood Peripheral Pending 06/13/16 13:45 Aerobic Blood Culture Received Blood Peripheral Pending 06/13/16 13:45 Anaerobic Blood Culture Received Blood Peripheral Pending 06/13/16 13:45 Gram Stain Received Wound Foot Pending 06/13/16 13:45 Wound Culture Received Wound Foot Pending Radiology Last Impressions Head CT 06/13/16 1329 Signed Impressions: Service Date/Time: Monday, June 13, 2016 14:50 - CONCLUSION: No acute disease. Saeed Kaur MD FACR Foot X-Ray 06/13/16 0000 Signed Impressions: Service Date/Time: Monday, June 13, 2016 14:11 - CONCLUSION: Soft tissue swelling without clear evidence of fracture or destructive bone changes. Severe bone demineralization. 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 Vernon Almonte MD Ankle X-Ray 06/13/16 0000 Signed Impressions: Service Date/Time: Monday, June 13, 2016 14:09 - CONCLUSION: Soft tissue swelling without evidence of displaced fracture or dislocation. Significant bony demineralization. Vernon Almonte MD Assessment/Plan Problem List: (1) Wound infection Status: Acute (2) Bilateral lower extremity edema Status: Acute (3) Onychogryphosis Status: Chronic (4) Poor hygiene Status: Acute Additional Plans & Procedures Ordered Hibiclens foot soaks 2. I will come by tomorrow and debride her nails. Patient most likely will require intermediate facility placement. Continue to follow Migue George DPM Jun 13, 2016 17:20
[2016-06-13] MEDS ORDERED: DEXTROSE 50% IN WATER 50 ML VIAL(D50) IV PUSH PRN (17:30)
[2016-06-13] MEDS ORDERED: GLUCAGON 1 MG/ML VIAL OTHER PRN (17:30)
[2016-06-13] MEDS: VANCOMYCIN 1,000 MG/NS 250 ML IV SCH ×4 (17:51→21:00)
[2016-06-13] MEDS: HEPARIN SODIUM - SQ 10,000 UNITS/ML VIAL SQ SCH (17:52)
[2016-06-13 18:00] VITALS: BP 130/60; PULSE 84; RESP 18; O2SAT 96
[2016-06-13 18:14] VITALS: RESP 18; O2SAT 95
[2016-06-13 19:21] VITALS: BP 125/60; PULSE 66; RESP 18; TEMP 98; O2SAT 97; O2SAT 98
[2016-06-13] MEDS: INSULIN NovoLIN REGULAR SUPPLEMENTAL SCALE SQ SCH (19:36)
[2016-06-13] MEDS: DOCUSATE SODIUM 100 MG CAP PO SCH (19:39)
[2016-06-13] MEDS: SODIUM CHLORIDE 0.9% FLUSH 5 ML FLUSH FLUSH SCH (21:09)
[2016-06-13 22:10] LABS: HEMOGLOBIN A1a 0.8 %; HEMOGLOBIN A1b 1.6 %; HEMOGLOBIN LA1C 2.2 %; HEMOGLOBIN P3 5.1 %
[2016-06-13] MEDS ORDERED: PERMETHRIN 5% CREAM 60 GM TOPICAL ONE (22:15)
[2016-06-14] VITALS (8 sets, daily range): BP systolic 103–146; BP diastolic 56–70; PULSE 72–96; RESP 18–20; TEMP 95.2–98.8; O2SAT 90–99
[2016-06-14] MEDS: HEPARIN SODIUM - SQ 10,000 UNITS/ML VIAL SQ SCH ×3 (02:16→17:45)
[2016-06-14] MEDS: INSULIN NovoLIN REGULAR SUPPLEMENTAL SCALE SQ SCH ×4 (05:56→21:00)
[2016-06-14 08:17] LABS: AUTOMATED NEUTROPHIL # 4.7 TH/MM3 (1.8-7.7); BASOPHIL % 0.5 % (0.0-2.0); EOSINOPHIL # 0.2 TH/MM3 (0-0.4); EOSINOPHIL % 2.7 % (0.0-4.0); HEMATOCRIT 35.3 % (35.0-46.0); HEMO FLAGS DIFF FINAL; LYMPH % 7.9 % (9.0-44.0); LYMPHOCYTE # 0.5 TH/MM3 (1.0-4.8); MEAN CELL VOLUME 81.3 FL (80.0-100.0); MEAN CORPUSCULAR HEMOGLOBIN 25.8 PG (27.0-34.0); MEAN CORPUSCULAR HGB CONC 31.7 % (32.0-36.0); MONO % 9.1 % (0.0-8.0); NEUT % 79.8 % (16.0-70.0); PLATELET COUNT 246 TH/MM3 (150-450); RED BLOOD COUNT 4.34 MIL/MM3 (4.00-5.30); RED CELL DISTRIBUTION WIDTH 14.9 % (11.6-17.2); WHITE BLOOD COUNT 5.9 TH/MM3 (4.0-11.0)
[2016-06-14 08:46] LABS: BICARBONATE 34.3 MEQ/L (21.0-32.0); POTASSIUM 4.2 MEQ/L (3.5-5.1)
[2016-06-14] MEDS: SODIUM CHLORIDE 0.9% FLUSH 5 ML FLUSH FLUSH SCH (08:58)
[2016-06-14] MEDS: DOCUSATE SODIUM 100 MG CAP PO SCH ×2 (09:50→21:00)
--- NOTE | 2016-06-14 12:45 | PD.POD ---
Subjective Podiatric Problems Dementia Edema of the lower extremities. Transverse laceration/ulceration improved. Multiple onychogryphosis nails Pain scale used: 0-10 numeric scale Pain score: 0 Past Med/Surg/Social History Past Medical History PFSH Reviewed: Yes Psychiatric: REPORTS HX OF: Other psychiatric history Social History Smoking Status: Never Smoker Review of Systems Notes No changes in her 14 point review of systems exam since she was seen yesterday Objective Vital Signs Vital Signs Date Time Temp Pulse Resp B/P Pulse Ox O2 Delivery O2 Flow Rate FiO2 06/14/16 08:00 95.2 72 18 129/56 95 06/14/16 06:50 96.9 78 20 125/70 90 06/14/16 00:14 97.0 89 20 103/58 93 06/13/16 19:21 98.0 66 18 125/60 97 Nasal Cannula 2 06/13/16 19:21 68 17 97 Nasal Cannula 2 06/13/16 19:21 18 98 Nasal Cannula 2 06/13/16 18:14 18 95 Nasal Cannula 4 06/13/16 18:00 84 18 130/60 96 Nasal Cannula 4 06/13/16 16:30 86 18 141/63 95 4 Coded Allergies: No Known Allergies (Verified , 11/20/08) Medications and IVs Current Medications IV Flush 2 ml 2 ml UNSCH PRN IVF FLUSH AFTER USING IV ACCESS; Start 06/13/16 at 13:30 Piperacillin Sod/ Tazobactam Sod 50 ml @ 100 mls/hr ONCE ONCE IV Last administered on 06/13/16 16:50; Start 06/13/16 at 16:00; Stop 06/13/16 at 16:29; Status DC Pharmacy Profile Note 0 ml @ 0 mls/hr UNSCH OTHER ; Start 06/13/16 at 17:00 Vancomycin HCl/ Sodium Chloride (Vancomycin Inj/ NS 250 ml Inj) 260 ml @ 250 mls/hr Q12H IV ; Start 06/13/16 at 17:00; Status UNV IV Flush (NS Flush) 2 ml UNSCH PRN FLUSH FLUSH AFTER USING IV ACCESS; Start 06/13/16 at 17:00 IV Flush (NS Flush) 2 ml BID FLUSH Last administered on 06/14/16 08:58; Start 06/13/16 at 21:00 Acetaminophen (Tylenol) 650 mg Q4H PRN PO TEMP > 100.4; Start 06/13/16 at 17:00 Ondansetron HCl (Zofran Inj) 4 mg Q6H PRN IVP NAUSEA OR VOMITING; Start at 17:00 Bisacodyl (Dulcolax Supp) 10 mg DAILY PRN [place] CONSTIPATION; Start 06/13/16 at 17: 00 Docusate Sodium (Colace) 100 mg Q12H PO Last administered on 06/14/16 09:50; Start 06/13/16 at 21:00 Magnesium Hydroxide (Milk Of Magnesia Liq) 30 ml Q12H PRN PO CONSTIPATION; Start 06/13/16 at 17:00 Sennosides (Senokot) 17.2 mg Q12H PRN PO CONSTIPATION; Start 06/13/16 at 17:00 Temazepam (Restoril) 15 mg HS PRN PO INSOMNIA; Start 06/13/16 at 17:00 Heparin Sodium (Porcine) (Heparin Inj) 5,000 units Q8H SQ Last administered on 06/14/16 09:51; Start 06/13/16 at 18:00 Acetaminophen/ Hydrocodone Bitart ([place] 5-325 Mg) 1 tab Q4H PRN PO PAIN SCALE 3 TO 5; Start 06/13/16 at 17:00 Acetaminophen/ Hydrocodone Bitart ([place] 7.5-325 Mg) 1 tab Q4H PRN PO PAIN SCALE 6 TO 10; Start 06/13/16 at 17:00 Naloxone HCl 0.4 mg 0.4 mg UNSCH PRN IV SEE LABEL COMMENTS; Start 06/13/16 at 17 :00 Vancomycin HCl/ Sodium Chloride (Vancomycin Inj/ NS 250 ml Inj) 250 ml @ 250 mls/hr Q24H IV Last administered on 06/13/16 17:51; Start 06/13/16 at 18:00 Enalaprilat (Vasotec Inj) 1.25 mg Q6H PRN IV PUSH bp>160/90; Start 06/13/16 at 17:15 Dextrose (D50w (Vial) Inj) 25 ml UNSCH PRN IV PUSH HYPOGLYCEMIA-SEE COMMENTS; Start 06/13/16 at 17:30 Glucagon (Glucagon Inj) 1 mg UNSCH PRN OTHER HYPOGLYCEMIA-SEE COMMENTS; Start 06/13/16 at 17:30 Insulin Human Regular (NovoLIN R SUPPLEMENTAL SCALE) 1 ACHS SLIDING SCALE SQ ; Start 06/13/16 at 21:00 Miscellaneous Information SPECIFIC LAB TO BE ... ONCE ONCE XX ; Start at 17:45; Stop 06/16/16 at 17:46 Permethrin (Elimite 5% Cream) 1 applic ONCE ONCE TOPICAL Last administered on 06/14/16t 02:16; Start 06/13/16 at 22:15; Stop 06/13/16 at 22:16; Status DC Other Results Laboratory Tests Test 06/13/16 06/14/16 12:20 07:48 White Blood Count 6.3 TH/MM3 5.9 TH/MM3 Red Blood Count 4.72 MIL/MM3 4.34 MIL/MM3 Hemoglobin 12.4 GM/DL 11.2 GM/DL Hematocrit 37.9 % 35.3 % Mean Corpuscular Volume 80.3 FL 81.3 FL Mean Corpuscular Hemoglobin 26.2 PG 25.8 PG Mean Corpuscular Hemoglobin 32.6 % 31.7 % Concent Red Cell Distribution Width 15.0 % 14.9 % Platelet Count 266 TH/MM3 246 TH/MM3 Mean Platelet Volume 7.3 FL 7.5 FL Neutrophils (%) (Auto) 83.8 % 79.8 % Lymphocytes (%) (Auto) 6.9 % 7.9 % Monocytes (%) (Auto) 7.8 % 9.1 % Eosinophils (%) (Auto) 0.7 % 2.7 % Basophils (%) (Auto) 0.8 % 0.5 % Neutrophils # (Auto) 5.3 TH/MM3 4.7 TH/MM3 Lymphocytes # (Auto) 0.4 TH/MM3 0.5 TH/MM3 Monocytes # (Auto) 0.5 TH/MM3 0.5 TH/MM3 Eosinophils # (Auto) 0.0 TH/MM3 0.2 TH/MM3 Basophils # (Auto) 0.0 TH/MM3 0.0 TH/MM3 CBC Comment DIFF FINAL DIFF FINAL Differential Comment Laboratory Tests Test 06/13/16 06/13/16 06/13/16 06/14/16 12:20 13:40 13:45 07:48 Sodium Level 139 MEQ/L 142 MEQ/L Potassium Level 4.9 MEQ/L 4.2 MEQ/L Chloride Level 103 MEQ/L 103 MEQ/L Carbon Dioxide Level 31.3 MEQ/L 34.3 MEQ/L Anion Gap 5 MEQ/L 5 MEQ/L Blood Urea Nitrogen 15 MG/DL 15 MG/DL Creatinine 0.95 MG/DL 0.89 MG/DL Estimat Glomerular Filtration 56 ML/MIN 60 ML/MIN Rate Random Glucose 75 MG/DL 80 MG/DL Hemoglobin A1c 5.1 % Calcium Level 9.2 MG/DL 8.6 MG/DL Total Bilirubin 0.6 MG/DL Direct Bilirubin 0.2 MG/DL Indirect Bilirubin 0.4 MG/DL Aspartate Amino Transf 44 U/L (AST/SGOT) Alanine Aminotransferase 28 U/L (ALT/SGPT) Alkaline Phosphatase 139 U/L Total Creatine Kinase 233 U/L 101 U/L Creatine Kinase MB 9.0 NG/ML Creatine Kinase MB % 3.9 % Troponin I 0.02 NG/ML B-Type Natriuretic Peptide 72 PG/ML Total Protein 7.0 GM/DL Albumin 2.5 GM/DL Lactic Acid Level 0.7 mmol/L Microbiology Date/Time Procedure Status Source Growth 06/13/16 13:40 Aerobic Blood Culture - Preliminary Resulted Blood Peripheral NO GROWTH IN 1 DAY 06/13/16 13:40 Anaerobic Blood Culture - Preliminary Resulted Blood Peripheral NO GROWTH IN 1 DAY 06/13/16 13:45 Aerobic Blood Culture - Preliminary Resulted Blood Peripheral NO GROWTH IN 1 DAY 06/13/16 13:45 Anaerobic Blood Culture - Preliminary Resulted Blood Peripheral NO GROWTH IN 1 DAY 06/13/16 13:45 Gram Stain - Final Resulted Wound Foot 06/13/16 13:45 Wound Culture Resulted Wound Foot Pending Exam-Podiatry Constitutional General appearance: comfortable Nutritional status: overweight Orientation: alert and oriented x3 Dermatological Exam Skin Temp - Right: Within Normal Limits Skin Texture - Right: Within Normal Limits Skin Elasticity - Right: Within Normal Limits Skin Tugor - Right: Within Normal Limits Hair Growth - Right: Within Normal Limits Pigmentation - Right: Within Normal Limits Skin Temp - Left: Within Normal Limits Skin Texture - Left: Within Normal Limits Skin Elasticity - Left: Within Normal Limits Skin Tugor - Left: Within Normal Limits Hair Growth - Left: Within Normal Limits Pigmentation - Left: Within Normal Limits Thickening: Toe #5 (R), Toe #4 (R), Toe #3 (R), Toe #2 (R), Toe #1 (R), Toe #1 (L), Toe #2 (L), Toe #3 (L), Toe #4 (L), Toe #5 (L) Yellow, Brittle, &/or Kristen: Toe #5 (R), Toe #4 (R), Toe #3 (R), Toe #2 (R) , Toe #1 (R), Toe #1 (L), Toe #2 (L), Toe #3 (L), Toe #4 (L), Toe #5 (L) Vascular/Lymphatic Exam R Dorsails Pedis: Palpable L Dorsails Pedis: Palpable R Posterior Tibial: Palpable L Posterior Tibial: Palpable Neurologic Exam Details Deferred Muscle Strength Dorsiflexion (Right): Normal Plantarflexion (Right): Normal Inversion (Right): Normal Eversion (Right): Normal Digital (Right): Normal Dorsiflexion (Left): Normal Plantarflexion (Left): Normal Inversion (Left): Normal Eversion (Left): Normal Digital (Left): Normal Foot Range of Motion Dorsiflexion (Right): Normal Plantarflexion (Right): Normal Inversion (Right): Normal Eversion (Right): Normal Digital (Right): Normal Dorsiflexion (Left): Normal Plantarflexion (Left): Normal Inversion (Left): Normal Eversion (Left): Normal Digital (Left): Normal Extremities Edema: Left lower extremity: 3+, pitting, foot, ankle, leg Right lower extremity: 3+, pitting, foot, ankle, leg Assessment & Plan Diagnosis: (1) Onychogryphosis Status: Chronic (2) Wound infection Status: Acute (3) Bilateral lower extremity edema Status: Acute A/P Nails 1 through 5 bilaterally were debrided after the foot soaks 2. No dressing needed to the right foot laceration. I will sign off at this time thank you for this consultation. Please reconsult me if needed. Patient was benefit from detention facility placement Migue George DPM Jun 14, 2016 12:45
[2016-06-14] MEDS ORDERED: HYDR-3516 PO (13:52)
[2016-06-14] MEDS: VANCOMYCIN 1,000 MG/NS 250 ML IV SCH ×2 (17:45)
--- NOTE | 2016-06-14 22:24 | RADRPT ---
EXAM DATE/TIME: 06/14/2016 22:09 [place] COMPARISON: No previous studies available for comparison. INDICATIONS : Stroke alert; unresponsive. Expressive aphasia. RADIATION DOSE: 56.35 CTDIvol (mGy) This report was called by Bladimir Holbrook at 10: 21 PM MEDICAL HISTORY : Non-responsive. SURGICAL HISTORY : Non-responsive. ENCOUNTER: Initial ACUITY: 1 day PAIN SCALE: Non-responsive LOCATION: cranial TECHNIQUE: Multiple contiguous axial images were obtained of the head. Using automated exposure control and adj ustment of the mA and/or kV according to patient size, radiation dose was kept as low as reasonably a chievable to obtain optimal diagnostic quality images. FINDINGS: CEREBRUM: The ventricles are normal for age. No evidence of midline shift, mass lesion, hemorrhage or acute in farction. No extra-axial fluid collections are seen. POSTERIOR FOSSA: The cerebellum and brainstem are intact. The 4th ventricle is midline. The cerebellopontine angle i s unremarkable. EXTRACRANIAL: The visualized portion of the orbits is intact. SKULL: The calvaria is intact. No evidence of skull fracture. CONCLUSION: No bleed or other acute intracranial abnormality. Report called to Dr. Holbrook at 10:21 PM. Guillermo Garrison MD on June 14, 2016 at 22:22 Board Certified Radiologist. This report was verified electronically.
[2016-06-14 23:18] LABS: AUTOMATED NEUTROPHIL # 6.9 TH/MM3 (1.8-7.7); BASOPHIL % 0.5 % (0.0-2.0); EOSINOPHIL # 0.1 TH/MM3 (0-0.4); EOSINOPHIL % 1.4 % (0.0-4.0); HEMATOCRIT 39.9 % (35.0-46.0); HEMO FLAGS DIFF FINAL; LYMPH % 6.5 % (9.0-44.0); LYMPHOCYTE # 0.5 TH/MM3 (1.0-4.8); MEAN CELL VOLUME 81.3 FL (80.0-100.0); MEAN CORPUSCULAR HEMOGLOBIN 25.9 PG (27.0-34.0); MEAN CORPUSCULAR HGB CONC 31.9 % (32.0-36.0); MONO % 8.3 % (0.0-8.0); NEUT % 83.3 % (16.0-70.0); PLATELET COUNT 275 TH/MM3 (150-450); RED CELL DISTRIBUTION WIDTH 15.3 % (11.6-17.2); WHITE BLOOD COUNT 8.3 TH/MM3 (4.0-11.0)
--- NOTE | 2016-06-14 23:18 | HHI.PR ---
Addendum to Inpatient Note Addendum Reason: Additional Documentation Additional Information [facility] was called at 2201 for patient that was non responsive, evaluated by the [facility] team and patient became a stroke alert. When I arrived the patient began to be more awake, and slightly weaker on right side, and slightly verbal. Case was discussed with Dr. Hernandez, neurology consumer insight manager, and he agreed with a Ct scan.After patient went to CT scan she began to have full function in all extremities, and talking and laughing. Impression: TIA Plan -mra/mri ordered -carotid us ordered -neurology to follow -2d echo ordered -due to lack of hospital beds it was felt patient could stay in current room since symptoms resolved. At 2355 [facility] was called, patient became unresponsive, and completely obtunded. BS 94. Narcan given. Dr. Jaquez responded as well and recommended intubation. He intubated patient at 0005, and Dr. Velasquez was notified. Patient is being transferred to [facility]. Call was placed to patient's niece Brooke , update given. Discussed case with Latanya Guadarrama Jun 14, 2016 23:18
[2016-06-14 23:21] LABS: I-STAT POTASSIUM 4.5 MMOL/L (3.5-4.9)
[2016-06-14 23:39] LABS: APTT (PATIENT) 28.3 SEC (24.3-30.1); PROTHROMBIN TIME - PATIENT 10.6 SEC (9.8-11.6)
[2016-06-15] VITALS (18 sets, daily range): BP systolic 112–150; BP diastolic 56–62; PULSE 87–107; RESP 18–31; TEMP 97.3–98.3; O2SAT 93–100
--- NOTE | 2016-06-15 00:03 | PD.CONS ---
[facility] Service Critical Care Medicine Consult Requested By Primary Care Physician No Primary Care Physician History of Present Illness 85 years old female who lives by herself, relatively poor historian, presented to the ED with a complaint of multiple skin tear on her lower extremity mostly on the right, after she falls from her walker. Patient was admitted to observation unit where he suddenly became unresponsive. Patient was intubated in the ED for an airway protection; however it was found later the patient was officially made DNR/DNI and wishes, the was found later in a patient's purse. When I examine the patient in the ICU she was following commands and awake. We have immediately extubated patient and placed the appropriate order DNR/DNI on the chart. Review of Systems ROS Unable to obtain patient is sedated and intubated Past Family Social History Allergies: Coded Allergies: No Known Allergies (Verified , 11/20/08) Past Medical History Hypertension Questionable heart failure Past Surgical History Denied previous surgeries Reported Medications Reported Meds & Active Scripts Active Hydrocodone-Acetaminophen 5-325 mg Tab 1 Tab PO Q4H PRN Reported [Bp Med] Active Ordered Medications Current Medications Medications (Trade) Dose Ordered Sig/Anabel Route PRN Reason Start Time Stop Time Status Last Admin Dose Admin IV Flush 2 ml 2 ml UNSCH PRN IVF FLUSH AFTER USING IV ACCESS 06/13/16 13:30 Pharmacy Profile Note (Vancomycin Consult Pharmacy) 0 ml @ 0 mls/hr UNSCH OTHER 06/13/16 17:00 IV Flush (NS Flush) 2 ml UNSCH PRN FLUSH FLUSH AFTER USING IV ACCESS 06/13/16 17:00 IV Flush (NS Flush) 2 ml BID FLUSH 06/13/16 21:00 06/14/16 08:58 Acetaminophen (Tylenol) 650 mg Q4H PRN PO TEMP > 100.4 06/13/16 17:00 Ondansetron HCl (Zofran Inj) 4 mg Q6H PRN IVP NAUSEA OR VOMITING 06/13/16 17:00 Bisacodyl (Dulcolax Supp) 10 mg DAILY PRN [place] CONSTIPATION 06/13/16 17:00 Docusate Sodium (Colace) 100 mg Q12H PO 06/13/16 21:00 06/14/16 09:50 Magnesium Hydroxide (Milk Of Magnesia Liq) 30 ml Q12H PRN PO CONSTIPATION 06/13/16 17:00 Sennosides (Senokot) 17.2 mg Q12H PRN PO CONSTIPATION 06/13/16 17:00 Temazepam (Restoril) 15 mg HS PRN PO INSOMNIA 06/13/16 17:00 Heparin Sodium (Porcine) (Heparin Inj) 5,000 units Q8H SQ 06/13/16 18:00 06/15/16 03:04 Acetaminophen/ Hydrocodone Bitart ([place] 5-325 Mg) 1 tab Q4H PRN PO PAIN SCALE 3 TO 5 06/13/16 17:00 Acetaminophen/ Hydrocodone Bitart ([place] 7.5-325 Mg) 1 tab Q4H PRN PO PAIN SCALE 6 TO 10 06/13/16 17:00 Naloxone HCl 0.4 mg 0.4 mg UNSCH PRN IV SEE LABEL COMMENTS 06/13/16 17:00 Vancomycin HCl/ Sodium Chloride (Vancomycin Inj/ NS 250 ml Inj) 250 ml @ 250 mls/hr Q24H IV 06/13/16 18:00 06/14/16 17:45 Enalaprilat (Vasotec Inj) 1.25 mg Q6H PRN IV PUSH bp>160/90 06/13/16 17:15 Dextrose (D50w (Vial) Inj) 25 ml UNSCH PRN IV PUSH HYPOGLYCEMIA-SEE COMMENTS 06/13/16 17:30 Glucagon (Glucagon Inj) 1 mg UNSCH PRN OTHER HYPOGLYCEMIA-SEE COMMENTS 06/13/16 17:30 Miscellaneous Information SPECIFIC LAB TO BE CLARENCE... ONCE ONCE XX 06/16/16 17:45 06/16/16 17:46 Family History Noncontributory Social History Negative 3 Physical Exam Vital Signs Vital Signs Date Time Temp Pulse Resp B/P Pulse Ox O2 Delivery O2 Flow Rate FiO2 06/14/16 22:56 99 Simple Mask 8.00 06/14/16 21:40 97.8 96 18 146/63 99 06/14/16 21:33 Simple Mask 8.00 06/14/16 19:40 98.8 91 18 125/65 98 06/14/16 18:30 98 Simple Mask 8.00 06/14/16 17:16 94 Simple Mask 8.00 06/14/16 16:00 87 20 124/63 06/14/16 12:00 78 18 118/63 94 06/14/16 08:00 95.2 72 18 129/56 95 06/14/16 06:50 96.9 78 20 125/70 90 06/14/16 00:14 97.0 89 20 103/58 93 Physical Exam GENERAL: Well-nourished, well-developed patient. SKIN: Warm and dry. HEAD: Normocephalic. EYES: No scleral icterus. No injection or drainage. NECK: Supple, trachea midline. No JVD or lymphadenopathy. CARDIOVASCULAR: Regular rate and rhythm without murmurs, gallops, or rubs. RESPIRATORY: Breath sounds equal bilaterally. No accessory muscle use. GASTROINTESTINAL: Abdomen soft, non-tender, nondistended. MUSCULOSKELETAL: No cyanosis, or edema. BACK: Nontender without obvious deformity. No CVA tenderness. Laboratory Laboratory Tests Test 06/14/16 06/14/16 07:48 22:45 White Blood Count 5.9 8.3 Red Blood Count 4.34 4.90 Hemoglobin 11.2 12.7 Hematocrit 35.3 39.9 Mean Corpuscular Volume 81.3 81.3 Mean Corpuscular Hemoglobin 25.8 25.9 Mean Corpuscular Hemoglobin 31.7 31.9 Concent Red Cell Distribution Width 14.9 15.3 Platelet Count 246 275 Mean Platelet Volume 7.5 7.7 Neutrophils (%) (Auto) 79.8 83.3 Lymphocytes (%) (Auto) 7.9 6.5 Monocytes (%) (Auto) 9.1 8.3 Eosinophils (%) (Auto) 2.7 1.4 Basophils (%) (Auto) 0.5 0.5 Neutrophils # (Auto) 4.7 6.9 Lymphocytes # (Auto) 0.5 0.5 Monocytes # (Auto) 0.5 0.7 Eosinophils # (Auto) 0.2 0.1 Basophils # (Auto) 0.0 0.0 CBC Comment DIFF FINAL DIFF FINAL Differential Comment Sodium Level 142 Potassium Level 4.2 Chloride Level 103 Carbon Dioxide Level 34.3 Anion Gap 5 Blood Urea Nitrogen 15 Creatinine 0.89 0.86 Estimat Glomerular Filtration 60 62 Rate Random Glucose 80 Calcium Level 8.6 Total Creatine Kinase 101 Bedside Hemoglobin 13.9 Bedside Hematocrit 41.0 Prothrombin Time 10.6 Prothromb Time International 1.0 Ratio Activated Partial 28.3 Thromboplast Time Bedside Sodium 141 Bedside Potassium 4.5 Bedside Chloride 101 Bedside Blood Urea Nitrogen 16 Bedside Glucose 101 Date/Time Procedure Status Source Growth 06/13/16 13:45 Gram Stain - Final Resulted Wound Foot 06/13/16 13:45 Wound Culture - Preliminary Resulted Wound Foot 06/13/16 13:45 Aerobic Blood Culture - Preliminary Resulted Blood Peripheral NO GROWTH IN 1 DAY 06/13/16 13:45 Anaerobic Blood Culture - Preliminary Resulted Blood Peripheral NO GROWTH IN 1 DAY Result Diagram: 06/14/16 2245 06/14/16 2245 Imaging Last 24 hours Impressions Chest X-Ray 06/15/16 0000 Signed Impressions: Service Date/Time: Wednesday, June 15, 2016 00:29 - CONCLUSION: 1. The endotracheal tube tip is located in an abnormally high location measuring approximately 10.7 cm from the candice. Consider advancement. 2. There has been a significant interval change in the appearance of the left hemithorax with marked volume loss and airspace opacity. There is associated leftward shift of the mediastinum and hyperinflation of the right lung. Given the interval change consider mucous plugging as a potential cause for the left lung collapse. Guillermo Monterroso MD Assessment and Plan Problem List: (1) Altered mental status ICD Code: R41.82 Status: Acute Assessment and Plan Respiratory failure - Intubated for airway protection - Most probably CO2 retainer - Due to volume loss - Probable mucus plaque - Patient has a official order DNR/DNI - We'll provide conservative management - Chest PT - Frequent suctioning Hypertension - Enalapril Leg cellulitis - Antibiotics per primary service Altered mental status - Due to above - Supportive care DVT GI prophylaxis - Heparin subcutaneously and Pepcid Critical Care: The total critical care time was 35 minutes. Time to perform other separately billable procedures was not included in the critical care time. Problem Qualifiers (1) Altered mental status: Qualified Code: R41.82 - Altered mental status, unspecified altered mental status type Ronald Velasquez MD Jun 15, 2016 00:03
--- NOTE | 2016-06-15 00:23 | PD ---
Data Data Last Documented VS Vital Signs Date Time Temp Pulse Resp B/P Pulse Ox O2 Delivery O2 Flow Rate FiO2 06/13/16 11:54 98.8 86 18 140/67 96 Orders Basic Metabolic Panel (Bmp) (06/13/16 12:09) Complete Blood Count With Diff (06/13/16 12:09) Wound Care (06/13/16 12:09) Wound Care (06/13/16 12:09) Electrocardiogram (06/13/16 13:29) B-Type Natriuretic Peptide (06/13/16 13:29) Ckmb (Isoenzyme) Profile (06/13/16 13:29) Troponin I (06/13/16 13:29) Act Partial Throm Time (Ptt) (06/13/16 13:29) Prothrombin Time / Inr (Pt) (06/13/16 13:29) Urinalysis - C+S If Indicated (06/13/16 13:29) Chest, Single Ap (06/13/16 13:29) Ct Brain W/O Iv Contrast(Rout) (06/13/16 13:29) Ct Cerv Spine W/O Contrast (06/13/16 13:29) Ecg Monitoring (06/13/16 13:29) Iv Access Insert/Monitor (06/13/16 13:29) Oximetry (06/13/16 13:29) Sodium Chloride 0.9% Flush (Ns Flush) (06/13/16 13:30) Ankle, Complete ([id number]) (06/13/16 ) Foot, Complete ([id number]) (06/13/16 ) Foot, Complete ([id number]) (06/13/16 ) Ankle, Complete ([id number]) (06/13/16 ) Hepatic Functional Panel (06/13/16 13:29) Blood Culture (06/13/16 13:36) Lactic Acid (06/13/16 13:36) Wound Culture And Gram Stain (06/13/16 13:49) CKMB (06/13/16 13:40) CKMB% (06/13/16 13:40) Piperacil-Tazo 3.375 Gm Premix (Zosyn 3. (06/13/16 16:00) Alcohol (Ethanol) (06/13/16 16:09) Admit Order (Ed Use Only) (06/13/16 16:09) Labs Laboratory Tests Test 06/13/16 06/13/16 06/13/16 06/13/16 12:20 13:40 13:45 15:30 White Blood Count 6.3 TH/MM3 Red Blood Count 4.72 MIL/MM3 Hemoglobin 12.4 GM/DL Hematocrit 37.9 % Mean Corpuscular Volume 80.3 FL Mean Corpuscular Hemoglobin 26.2 PG Mean Corpuscular Hemoglobin 32.6 % Concent Red Cell Distribution Width 15.0 % Platelet Count 266 TH/MM3 Mean Platelet Volume 7.3 FL Neutrophils (%) (Auto) 83.8 % Lymphocytes (%) (Auto) 6.9 % Monocytes (%) (Auto) 7.8 % Eosinophils (%) (Auto) 0.7 % Basophils (%) (Auto) 0.8 % Neutrophils # (Auto) 5.3 TH/MM3 Lymphocytes # (Auto) 0.4 TH/MM3 Monocytes # (Auto) 0.5 TH/MM3 Eosinophils # (Auto) 0.0 TH/MM3 Basophils # (Auto) 0.0 TH/MM3 CBC Comment DIFF FINAL Differential Comment Sodium Level 139 MEQ/L Potassium Level 4.9 MEQ/L Chloride Level 103 MEQ/L Carbon Dioxide Level 31.3 MEQ/L Anion Gap 5 MEQ/L Blood Urea Nitrogen 15 MG/DL Creatinine 0.95 MG/DL Estimat Glomerular Filtration 56 ML/MIN Rate Random Glucose 75 MG/DL Hemoglobin A1c 5.1 % Calcium Level 9.2 MG/DL Prothrombin Time 11.0 SEC Prothromb Time International 1.0 RATIO Ratio Activated Partial 27.5 SEC Thromboplast Time Total Bilirubin 0.6 MG/DL Direct Bilirubin 0.2 MG/DL Indirect Bilirubin 0.4 MG/DL Aspartate Amino Transf 44 U/L (AST/SGOT) Alanine Aminotransferase 28 U/L (ALT/SGPT) Alkaline Phosphatase 139 U/L Total Creatine Kinase 233 U/L Creatine Kinase MB 9.0 NG/ML Creatine Kinase MB % 3.9 % Troponin I 0.02 NG/ML B-Type Natriuretic Peptide 72 PG/ML Total Protein 7.0 GM/DL Albumin 2.5 GM/DL Ethyl Alcohol Level LESS THAN 3 MG/DL Lactic Acid Level 0.7 mmol/L Urine Color YELLOW Urine Turbidity CLEAR Urine pH 5.5 Urine Specific [place] 1.023 Urine Protein TRACE mg/dL Urine Glucose (UA) NEG mg/dL Urine Ketones 10 mg/dL Urine Occult Blood NEG Urine Nitrite NEG Urine Bilirubin NEG Urine Urobilinogen 2.0 MG/DL Urine Leukocyte Esterase NEG Urine RBC 26 /hpf Urine WBC 2 /hpf Urine Squamous Epithelial <1 /hpf Cells Microscopic Urinalysis Comment CULT NOT INDICATED MDM Supervised Visit with GREGORIA: No Narrative Course Ruben was called on this patient. Arrive at [facility] to find obtunded patient. Patient admitted for cellulitis. Given vancomycin. Ruben called earlier on this patient possible TIA/Stroke. Patient GCS of [id number]=2 on my arrival. Patient will withdrawal with bilateral upper extremities. Pupils pinpoint. Narcan 0.8mg IV given without response. Patient has not received any narcotics since admission on June 13. BG 90 per nursing. Patient requiring intubation for airway protection. Vital signs were obtained and within normal limits. Saturating 100% on nonrebreather. Dr. Watson Patel PGY 3 on the family medicine residency is at bedside as well who has intubated under my direct supervision. Dr. Valery Mack who is the night attending for the services also been wearing aware of the patient's change in status. Patient was moved to [facility] in stable condition and further management by Dr. Velasquez. Procedures Procedure Narrative Under my direct supervision Dr. Watson Patel intubated the patient with Mac 3, 7.5 ET tube on the first attempt. Patient was sedated with 20 mg of etomidate and paralyzed with 100 mg of succinylcholine. Tube was confirmed by color change capnography and subsequent chest x-ray shows the ET tube was somewhat shallow was advanced 2 cm. Remainder of interpretation of this x-ray somewhat limited by rotation. Patient was discussed very briefly with Dr. Velasquez has been made aware of the patient by the house supervising nurse. Patient tolerated the procedure well without any immediate complication. Diagnosis Primary Impression: Altered mental status Qualified Code: R41.82 - Altered mental status, unspecified altered mental status type Additional Impressions: Bilateral lower extremity edema Wound infection Elevated CK Unwitnessed fall Scripts Hydrocodone-Acetaminophen 5-325 mg Tab1 Tab PO Q4H PRN (PAIN SCALE 3 TO 5) #25 TAB Prov:Meena Reilly MD 06/14/16 Maverick Jaquez MD Jun 15, 2016 00:23
[2016-06-15] MEDS ORDERED: SUCCINYLCHOLINE CHLORIDE 200 MG/10 ML VIAL IV PUSH ONE (00:30)
[2016-06-15] MEDS ORDERED: ETOMIDATE 20 MG/10 ML VIAL IV PUSH ONE (00:30)
--- NOTE | 2016-06-15 00:56 | RADRPT ---
EXAM DATE/TIME: 06/15/2016 00:29 [facility] COMPARISON: CHEST SINGLE AP, June 13, 2016, 14:07. INDICATIONS : Evaluate ETT placement. MEDICAL HISTORY : None. SURGICAL HISTORY : None. ENCOUNTER: Initial ACUITY: 1 day PAIN SCORE: Non-responsive. LOCATION: Bilateral chest FINDINGS: Rotated AP view of the chest demonstrates marked leftward shift of the mediastinum with opacity throu ghout most of the left lung with obscuration of the left hemidiaphragm. The right lung is hyperexpand ed. No pneumothorax is visualized. The endotracheal tube tip is above the clavicular head level measu ring approximately 10.7 cm from the candice. There is severe degenerative change of the left glenohume ral joint with abnormal elevation of the left humeral head indicating chronic rotator cuff tear. CONCLUSION: 1. The endotracheal tube tip is located in an abnormally high location measuring approximately 10.7 c m from the candice. Consider advancement. 2. There has been a significant interval change in the appearance of the left hemithorax with marked volume loss and airspace opacity. There is associated leftward shift of the mediastinum and hyperinfl ation of the right lung. Given the interval change consider mucous plugging as a potential cause for the left lung collapse. Guillermo Monterroso MD on June 15, 2016 at 0:52 Board Certified Radiologist. This report was verified electronically.
[2016-06-15] MEDS: HEPARIN SODIUM - SQ 10,000 UNITS/ML VIAL SQ SCH ×3 (03:04→18:29)
[2016-06-15] MEDS: INSULIN NovoLIN REGULAR SUPPLEMENTAL SCALE SQ SCH ×4 (07:00→20:41)
--- NOTE | 2016-06-15 07:03 | EKG ---
Date Performed: 06/13/2016 Time Performed: 16:56:01 PTAGE: 85 years EKG: Sinus rhythm NORMAL ECG NO PREVIOUS TRACING DOCTOR: José Young Interpretating Date/Time 06/15/2016 07:01:03
--- NOTE | 2016-06-15 07:34 | HHI.PR ---
Subjective Remarks Late entry from 06/14/16: Patient seen and examined with the presence of the her friend, she is hard hearing, difficult to communicate however she reported she feels much better after her feet that taking care of including the nails, will continue on antibiotics and monitor her wound and blood culture, also discussed with the nurse, will get caseworker protective services to work on SNF placement, patient lives alone she doesn't seem to be safe to be discharged on her own Objective Vitals Vital Signs Date Time Temp Pulse Resp B/P Pulse Ox O2 Delivery O2 Flow Rate FiO2 06/15/16 06:00 94 06/15/16 04:00 100 06/15/16 04:00 97.3 94 31 150/62 100 06/15/16 02:44 94 Simple Mask 6.00 06/15/16 02:00 96 06/15/16 01:23 93 Nasal Cannula 4 06/15/16 00:56 99 100 06/15/16 00:30 100 50 06/15/16 00:19 98.0 87 18 125/56 99 06/14/16 22:56 99 Simple Mask 8.00 06/14/16 21:40 97.8 96 18 146/63 99 06/14/16 21:33 Simple Mask 8.00 06/14/16 19:40 98.8 91 18 125/65 98 06/14/16 18:30 98 Simple Mask 8.00 06/14/16 17:16 94 Simple Mask 8.00 06/14/16 16:00 87 20 124/63 06/14/16 12:00 78 18 118/63 94 06/14/16 08:00 95.2 72 18 129/56 95 I/O 06/14/16 06/14/16 06/14/16 06/15/16 06/15/16 06/15/16 06:59 14:59 22:59 06:59 14:59 22:59 Intake Total 350 ml Output Total 200 ml Balance 350 ml -200 ml Intake Oral 350 ml Output Urine Total 200 ml # Voids 3 # Bowel Movements 0 Result Diagram: 06/14/16224406/14/162244 Objective Remarks - GENERAL: This is a well-nourished, well-developed patient, in no apparent distress., Heart hearing SKIN: No rashes, ecchymoses or lesions. Cool and dry. HEAD: Atraumatic. Normocephalic. No temporal or scalp tenderness. EYES: Pupils equal round and reactive. Extraocular motions intact. No scleral icterus. No injection or drainage. ENT: Nose without bleeding, purulent drainage or septal hematoma. Throat without erythema, tonsillar hypertrophy or exudate. Uvula midline. Airway patent. NECK: Trachea midline. No JVD or lymphadenopathy. Supple, nontender, no meningeal signs. CARDIOVASCULAR: Regular rate and rhythm without murmurs, gallops, or rubs. RESPIRATORY: Clear to auscultation. Breath sounds equal bilaterally. No wheezes , rales, or rhonchi. GASTROINTESTINAL: Abdomen soft, non-tender, nondistended. No hepato-splenomegaly , or palpable masses. No guarding. MUSCULOSKELETAL: Bilateral lower extremity with multiple skin tear, +1 edema, toenail clipped by podiatry NEUROLOGICAL: Awake and alert. Moves all extremities, heart hearing A/P Assessment and Plan Status post fall resulted in bilateral lower extremity wound, skin tear Multiple Ingrown nails worst is the right toe status post clipping by podiatry Mild rhabdo mostly due to the fall CPK 132>> trending down Subjective history of diuretic use ? Heart failure however BMP within normal limit Increase AST /ALT almost 2:1 denied abusing alcohol will check alcohol level DVT prophylaxis with heparin Plan: Discussed with podiatry, continue antibiotic, monitor wound and blood culture sap solution manager consultant consulted for SNF placement, patient is hard hearing debilitated and lives alone, not safe to be discharged home PT OT order Appreciate Wound Care and podiatry help Vasotec as needed hemoglobin A1c within normal limits, Accu-Chek to monitor blood sugar Meena Reilly MD Jun 15, 2016 07:34
[2016-06-15] MEDS: DOCUSATE SODIUM 100 MG CAP PO SCH ×2 (08:35→20:41)
[2016-06-15] MEDS: SODIUM CHLORIDE 0.9% FLUSH 5 ML FLUSH FLUSH SCH ×2 (08:37→19:55)
--- NOTE | 2016-06-15 11:20 | HHI.PR ---
Addendum to Inpatient Note Additional Information Discussed with , he will monitor the patient for today will be taking over tomorrow Meena Reilly MD Jun 15, 2016 11:20
--- NOTE | 2016-06-15 11:27 | RADRPT ---
EXAM DATE/TIME: 06/15/2016 10:14 [facility] COMPARISON: No previous studies available for comparison. INDICATIONS : Transient ischemic attack. MEDICAL HISTORY : Hypertension. Dyspena. Transient ischemic attack. SURGICAL HISTORY : Bilateral catartact eye surgery. Right foot surgery. ENCOUNTER: Initial ACUITY: 1 day PAIN SCORE: 0/10 LOCATION: Bilateral neck PEAK SYSTOLIC VELOCITIES (cm/sec): ICA/CCA RATIO: Right: 1.3 Left: 1.0 ICA: Right: 143 Left: 95 CCA: Right: 112 Left: 95 ECA: Right: 100 Left: 82 VERTEBRAL: Right: 56 antegrade Left: 71 antegrade Elevated flow velocities and ICA/CCA ratios have been found to correlate with increased degrees of vessel stenosis, calculated as percentage of diameter relative to a normal segment of distal ICA/CCA FINDINGS: RIGHT CAROTID: Mild to moderate calcified plaque at the carotid bulb. The waveforms are within normal limits. LEFT CAROTID: Mild to moderate calcified plaque at the carotid bulb. The waveforms are within normal limits. VERTEBRAL ARTERIES: Antegrade flow is seen in both vertebral arteries. MISCELLANEOUS: None. CONCLUSION: No evidence of hemodynamically significant carotid stenosis. Christo Rodrigues MD on June 15, 2016 at 11:24 Board Certified Radiologist. This report was verified electronically.
--- NOTE | 2016-06-15 12:59 | RADRPT ---
EXAM DATE/TIME: 06/15/2016 11:39 [facility] COMPARISON: No previous studies available for comparison. INDICATIONS : Confusion. Expressive aphasia. MEDICAL HISTORY : Renal insufficiency, chronic. SURGICAL HISTORY : Right ankle ENCOUNTER: Initial ACUITY: 1 day PAIN SCORE: 0/10 LOCATION: cranial TECHNIQUE: Multiplanar, multisequence MRI of the brain was performed without contrast. FINDINGS: CEREBRUM: The ventricles are normal for age. No evidence of midline shift, mass lesion, hemorrhage or acute in farction. No extraaxial fluid collections are seen. The pituitary gland and suprasellar cistern are normal in configuration. Old left thalamic lacunar infarct. WHITE MATTER: No significant signal abnormalities are seen in the white matter. POSTERIOR FOSSA: Small old infarcts in the left cerebellar hemisphere. The cerebellum and brainstem are intact. The 4 th ventricle is midline. The cerebellopontine angle is unremarkable. The cerebellar tonsils are norm al in position. DIFFUSION IMAGING: No focal areas of restricted diffusion are seen. No evidence of acute infarction. EXTRACRANIAL: The visualized portions of the orbits and paranasal sinuses are unremarkable. CONCLUSION: Chronic ischemic changes. No acute intracranial findings. Christo Rodrigues MD on June 15, 2016 at 12:55 Board Certified Radiologist. This report was verified electronically.
--- NOTE | 2016-06-15 13:03 | RADRPT ---
EXAM DATE/TIME: 06/15/2016 11:39 [facility] COMPARISON: No previous studies available for comparison. INDICATIONS : Expressive aphasia. MEDICAL HISTORY : Renal insufficiency, chronic. SURGICAL HISTORY : Right ankle surgery. ENCOUNTER: Initial ACUITY: 1 day PAIN SCORE: 0/10 LOCATION: cranial Please note a normal MRA of the brain does not entirely exclude the possibility of a small aneurysm, nor the possibility of distal intracranial vessel disease. TECHNIQUE: 3D time of flight MRA was performed. Source images, multiplanar STS MIP, and 3D volume MIP reconstru ctions were reviewed. FINDINGS: Prominent motion artifact. Diffuse atherosclerotic disease. Patent posterior to indicating artery on the left. No evidence of proximal high grade stenosis or aneurysm. CONCLUSION: Prominent motion artifact. No gross acute abnormality. Christo Rodrigues MD on June 15, 2016 at 12:58 Board Certified Radiologist. This report was verified electronically.
--- NOTE | 2016-06-15 15:23 | PD.CONS ---
Consult Service Palliative Care . Consult Requested By Dr. Tano Morgan . Primary Care Physician Dr. Sen . Reason for Consultation a. To assist with evaluation and management of symptoms including: encephalopathy, dyspnea. b. To assist medical decision maker(s) with: better understanding of current medical conditions; weighing benefits/burdens of medical treatment options; making medical treatment decisions. . HPI History of Present Illness Mrs. Mcdonald is a 85 year old female with past medical history of hypertension. She lives alone. Patient presented to [facility] on 06/13/16 with skin tear on her right lower extremity. She was reportedly unkempt, nursing staff reports bed bugs found. She is admitted with altered mental status, wound infection. CT head no acute disease. CT cervical spine degenerative changes no evidence of fracture. On 06/14/16 2201 patient became unresponsive. [facility] was called for possible stroke alert. Repeat CT head revealed no acute intracranial abnormality. After CT scan patient began to have full function of extremities, was talking and laughing. Carotid artery ultrasound no evidence of significant carotid stenosis. At 2355 [facility] was called again when she became unresponsive/ obtunded. MRA head no acute gross abnormality. Patient was intubated and transferred to [facility] MRI brain revealed chronic ischemic changes, no acute intracranial findings. It was later found that the patient had a signed [place] do not resuscitate order in her purse dated 04/12/2003. Patient was extubated and DNR/DNI order was placed. Patient seen and examined in ICU. No family at bedside. Patient is lethargic, arouses briefly to voice, does not answer any questions or follow commands. Was unable to participate in PT today. Swallow evaluation pending. Discussed with Dr. Morgan. In speaking with family, mental status continues to fluctuate today is the worst they have seen her. . Function/Cognitive Trajectory Family reports significant decline over the past 3 weeks. Patient was living home independently, able to drive, active member of her judaism. Approximately 3 to 4 weeks ago she stopped going to judaism, was unable to care for herself, decreased appetite, increased lethargy and significant generalized decline reported. She had recently verbalized to family that she was now unable to care for herself and was considering placement in SNF. . Review of Systems Constitutional: COMPLAINS OF: Fatigue (increased sleep), Weight loss (decreased ), Change in appetite (decreased eating small amounts of TV dinners, convenience foods.), Pain (chronic pain), Generalized weakness Eyes: COMPLAINS OF: Blurred vision Respiratory: COMPLAINS OF: Shortness of breath Gastrointestinal: COMPLAINS OF: Difficulty Swallowing, Anorexia Musculoskeletal: COMPLAINS OF: Joint pain, Stiffness Integumentary: COMPLAINS OF: Non-healing sores (right lower extremity skin tear , wound right foot) Hematologic/Lymphatics: COMPLAINS OF: Bruising Psychiatric: COMPLAINS OF: Confusion, Agitation (family reports some recent intermittent agitation) Past Family Social History Coded Allergies: No Known Allergies (Verified , 11/20/08) Past Medical History Hypertension Questionable heart failure Past Surgical History Denied previous surgeries Reported Medications Hydrocodone-Acetaminophen 5-325 mg Tab 1 Tab PO Q4H PRN Reported Notes indicate she reported taking a water pill for BP. . Current Medications Medications (Trade) Dose Ordered Sig/Anabel Route Start Time Stop Time Status Last Admin IV Flush 2 ml 2 ml UNSCH PRN IVF 06/13/16 13:30 (Vancomycin Consult Pharmacy) 0 ml @ 0 mls/hr UNSCH OTHER 06/13/16 17:00 (NS Flush) 2 ml UNSCH PRN FLUSH 06/13/16 17:00 (NS Flush) 2 ml BID FLUSH 06/13/16 21:00 06/15/16 08:37 (Tylenol) 650 mg Q4H PRN PO 06/13/16 17:00 (Zofran Inj) 4 mg Q6H PRN IVP 06/13/16 17:00 (Dulcolax Supp) 10 mg DAILY PRN SD 06/13/16 17:00 (Colace) 100 mg Q12H PO 06/13/16 21:00 06/14/16 09:50 (Milk Of Magnesia Liq) 30 ml Q12H PRN PO 06/13/16 17:00 (Senokot) 17.2 mg Q12H PRN PO 06/13/16 17:00 (Restoril) 15 mg HS PRN PO 06/13/16 17:00 (Heparin Inj) 5,000 units Q8H SQ 06/13/16 18:00 06/15/16 08:37 (Oneida 5-325 Mg) 1 tab Q4H PRN PO 06/13/16 17:00 (Oneida 7.5-325 Mg) 1 tab Q4H PRN PO 06/13/16 17:00 Naloxone HCl 0.4 mg 0.4 mg UNSCH PRN IV 06/13/16 17:00 (Vancomycin Inj/ NS 250 ml Inj) 250 ml @ 250 mls/hr Q24H IV 06/13/16 18:00 06/14/16 17:45 (Vasotec Inj) 1.25 mg Q6H PRN IV PUSH 06/13/16 17:15 (D50w (Vial) Inj) 25 ml UNSCH PRN IV PUSH 06/13/16 17:30 (Glucagon Inj) 1 mg UNSCH PRN OTHER 06/13/16 17:30 Miscellaneous Information SPECIFIC LAB TO BE ... ONCE ONCE XX 06/16/16 17:45 06/16/16 17:46 . Family History Sister alive at 93. . Substance Use Tobacco: Alcohol: Prescription med abuse: Illicits: Psychosocial History . Lives alone. No children. Only family her sister, Kim Berg and 2 nieces, Brooke and Patricia (they all live in [place]). She has a sister in law that lives local, [facility]. . Spiritual/Cultural Factors Protestant ramsey. Living Will: Never completed Health Care Surrogate: Never completed Durable Power of Electrical Wiring Lineman: Never completed Documented care wishes: [place] do not resuscitate order signed by patient dated 04/12/2003. . Today's verbally stated goals: Patient currently incapacitated, uncertain if she will regain capacity. Family/friends goals: Family considering continued aggressive care versus transition to comfort focused care with hospice support. It would like to speak this evening, monitor patient overnight before making this decision. . Ethical and Legal Issues No known concerns at this time. Patient does not have written advance directives aside from [place] do not resuscitate order. According to [place] statutes, health care proxy decision-making falls to the patient's sister Kim Berg. . Physical Exam Vital Signs Date Time Temp Pulse Resp B/P Pulse Ox O2 Delivery O2 Flow Rate FiO2 06/15/16 12:45 97.5 96 18 112/58 99 06/15/16 10:00 96 06/15/16 09:23 98 Simple Mask 8.00 06/15/16 09:13 94 Nasal Cannula 3.00 06/15/16 08:00 96 06/15/16 08:00 98.3 96 21 126/56 99 06/15/16 07:00 94 Simple Mask 6.00 06/15/16 06:00 94 06/15/16 04:00 100 06/15/16 04:00 97.3 94 31 150/62 100 06/15/16 02:44 94 Simple Mask 6.00 06/15/16 02:00 96 06/15/16 01:23 93 Nasal Cannula 4 06/15/16 00:56 99 100 06/15/16 00:30 100 50 06/15/16 00:19 98.0 87 18 125/56 99 06/14/16 22:56 99 Simple Mask 8.00 06/14/16 21:40 97.8 96 18 146/63 99 06/14/16 21:33 Simple Mask 8.00 06/14/16 19:40 98.8 91 18 125/65 98 06/14/16 18:30 98 Simple Mask 8.00 06/14/16 17:16 94 Simple Mask 8.00 06/14/16 16:00 87 20 124/63 06/14/16 06/15/16 19:00 07:00 Intake Total 350 ml Output Total 200 ml Balance 350 ml -200 ml Intake Oral 350 ml Output Urine Total 200 ml # Voids 3 # Bowel Movements 0 Exam CONSTITUTIONAL/GENERAL: This is an elderly frail appearing patient, with mild respiratory distress. TUBES/LINES/DRAINS: oxygen via mask, PIV bilateral, Ortega. SKIN: No jaundice, rashes, or lesions. Ecchymoses on upper extremities. Skin tear right lower extremity and right foot. Skin temperature appropriate. Not diaphoretic. HEAD: Atraumatic. Normocephalic. EYES: eyes closed. ENT: unable to adequately assess hearing given lethargy. Nose without bleeding or purulent drainage. Throat without visible erythema, exudates, masses, or lesions. NECK: Trachea midline. Supple, nontender. No palpable thyroid enlargement or nodularity. CARDIOVASCULAR: Regular rate and rhythm without murmurs, gallops, or rubs. No JVD. Peripheral pulses symmetric. RESPIRATORY/CHEST: mildly labored respirations at rest, using accessory muscles. GASTROINTESTINAL: Abdomen soft, non-tender, nondistended. No guarding. Bowel sounds present. GENITOURINARY: Without palpable bladder distension. Ortega catheter in place. MUSCULOSKELETAL: Extremities without clubbing, cyanosis. Trace lower extremity edema. No mottling or clubbing. LYMPHATICS: No palpable cervical or supraclavicular adenopathy. NEUROLOGICAL: lethargic, arouses briefly to voice, does not follow commands, does not answer questions. PSYCHIATRIC: lethargic. . Diagnostic Tests Laboratory Laboratory Tests Test 06/13/16 06/13/16 06/13/16 06/13/16 12:20 13:40 13:45 15:30 White Blood Count 6.3 TH/MM3 (4.0-11.0) Red Blood Count 4.72 MIL/MM3 (4.00-5.30) Hemoglobin 12.4 GM/DL (11.6-15.3) Hematocrit 37.9 % (35.0-46.0) Mean Corpuscular Volume 80.3 FL (80.0-100.0) Mean Corpuscular Hemoglobin 26.2 PG (27.0-34.0) Mean Corpuscular Hemoglobin 32.6 % Concent (32.0-36.0) Red Cell Distribution Width 15.0 % (11.6-17.2) Platelet Count 266 TH/MM3 (150-450) Mean Platelet Volume 7.3 FL (7.0-11.0) Neutrophils (%) (Auto) 83.8 % (16.0-70.0) Lymphocytes (%) (Auto) 6.9 % (9.0-44.0) Monocytes (%) (Auto) 7.8 % (0.0-8.0) Eosinophils (%) (Auto) 0.7 % (0.0-4.0) Basophils (%) (Auto) 0.8 % (0.0-2.0) Neutrophils # (Auto) 5.3 TH/MM3 (1.8-7.7) Lymphocytes # (Auto) 0.4 TH/MM3 (1.0-4.8) Monocytes # (Auto) 0.5 TH/MM3 (0-0.9) Eosinophils # (Auto) 0.0 TH/MM3 (0-0.4) Basophils # (Auto) 0.0 TH/MM3 (0-0.2) CBC Comment DIFF FINAL Differential Comment Sodium Level 139 MEQ/L (136-145) Potassium Level 4.9 MEQ/L (3.5-5.1) Chloride Level 103 MEQ/L (98-107) Carbon Dioxide Level 31.3 MEQ/L (21.0-32.0) Anion Gap 5 MEQ/L (5-15) Blood Urea Nitrogen 15 MG/DL (7-18) Creatinine 0.95 MG/DL (0.50-1.00) Estimat Glomerular Filtration 56 ML/MIN (>89) Rate Random Glucose 75 MG/DL (74-106) Hemoglobin A1c 5.1 % (4.3-6.0) Calcium Level 9.2 MG/DL (8.5-10.1) Prothrombin Time 11.0 SEC (9.8-11.6) Prothromb Time International 1.0 RATIO Ratio Activated Partial 27.5 SEC Thromboplast Time (24.3-30.1) Total Bilirubin 0.6 MG/DL (0.2-1.0) Direct Bilirubin 0.2 MG/DL (0.0-0.2) Indirect Bilirubin 0.4 MG/DL (0.0-0.8) Aspartate Amino Transf 44 U/L (15-37) (AST/SGOT) Alanine Aminotransferase 28 U/L (10-53) (ALT/SGPT) Alkaline Phosphatase 139 U/L (45-117) Total Creatine Kinase 233 U/L (26-192) Creatine Kinase MB 9.0 NG/ML (0.5-3.6) Creatine Kinase MB % 3.9 % (0.0-4.0) Troponin I 0.02 NG/ML (0.02-0.05) B-Type Natriuretic Peptide 72 PG/ML (0-100) Total Protein 7.0 GM/DL (6.4-8.2) Albumin 2.5 GM/DL (3.4-5.0) Ethyl Alcohol Level LESS THAN 3 MG/DL (0-5) Lactic Acid Level 0.7 mmol/L (0.4-2.0) Urine Color YELLOW (YELLW/STRAW) Urine Turbidity CLEAR (CLEAR) Urine pH 5.5 (5.0-8.5) Urine Specific Foley 1.023 (1.002-1.035) Urine Protein TRACE mg/dL (NEG-TRACE) Urine Glucose (UA) NEG mg/dL (NEG) Urine Ketones 10 mg/dL (NEG) Urine Occult Blood NEG (NEG) Urine Nitrite NEG (NEG) Urine Bilirubin NEG (NEG) Urine Urobilinogen 2.0 MG/DL (LESS THAN 2.0) Urine Leukocyte Esterase NEG (NEG) Urine RBC 26 /hpf (0-3) Urine WBC 2 /hpf (0-5) Urine Squamous Epithelial <1 /hpf (0-5) Cells Microscopic Urinalysis Comment CULT NOT INDICATED Test 06/14/16 06/14/16 06/15/16 07:48 22:45 01:40 White Blood Count 5.9 TH/MM3 8.3 TH/MM3 (4.0-11.0) (4.0-11.0) Red Blood Count 4.34 MIL/MM3 4.90 MIL/MM3 (4.00-5.30) (4.00-5.30) Hemoglobin 11.2 GM/DL 12.7 GM/DL (11.6-15.3) (11.6-15.3) Hematocrit 35.3 % 39.9 % (35.0-46.0) (35.0-46.0) Mean Corpuscular Volume 81.3 FL 81.3 FL (80.0-100.0) (80.0-100.0) Mean Corpuscular Hemoglobin 25.8 PG 25.9 PG (27.0-34.0) (27.0-34.0) Mean Corpuscular Hemoglobin 31.7 % 31.9 % Concent (32.0-36.0) (32.0-36.0) Red Cell Distribution Width 14.9 % 15.3 % (11.6-17.2) (11.6-17.2) Platelet Count 246 TH/MM3 275 TH/MM3 (150-450) (150-450) Mean Platelet Volume 7.5 FL 7.7 FL (7.0-11.0) (7.0-11.0) Neutrophils (%) (Auto) 79.8 % 83.3 % (16.0-70.0) (16.0-70.0) Lymphocytes (%) (Auto) 7.9 % 6.5 % (9.0-44.0) (9.0-44.0) Monocytes (%) (Auto) 9.1 % (0.0-8.0) 8.3 % (0.0-8.0) Eosinophils (%) (Auto) 2.7 % (0.0-4.0) 1.4 % (0.0-4.0) Basophils (%) (Auto) 0.5 % (0.0-2.0) 0.5 % (0.0-2.0) Neutrophils # (Auto) 4.7 TH/MM3 6.9 TH/MM3 (1.8-7.7) (1.8-7.7) Lymphocytes # (Auto) 0.5 TH/MM3 0.5 TH/MM3 (1.0-4.8) (1.0-4.8) Monocytes # (Auto) 0.5 TH/MM3 0.7 TH/MM3 (0-0.9) (0-0.9) Eosinophils # (Auto) 0.2 TH/MM3 0.1 TH/MM3 (0-0.4) (0-0.4) Basophils # (Auto) 0.0 TH/MM3 0.0 TH/MM3 (0-0.2) (0-0.2) CBC Comment DIFF FINAL DIFF FINAL Differential Comment Sodium Level 142 MEQ/L (136-145) Potassium Level 4.2 MEQ/L (3.5-5.1) Chloride Level 103 MEQ/L (98-107) Carbon Dioxide Level 34.3 MEQ/L (21.0-32.0) Anion Gap 5 MEQ/L (5-15) Blood Urea Nitrogen 15 MG/DL (7-18) Creatinine 0.89 MG/DL 0.86 MG/DL (0.50-1.00) (0.50-1.00) Estimat Glomerular Filtration 60 ML/MIN (>89) 62 ML/MIN (>89) Rate Random Glucose 80 MG/DL (74-106) Calcium Level 8.6 MG/DL (8.5-10.1) Total Creatine Kinase 101 U/L (26-192) Bedside Hemoglobin 13.9 G/DL (12.0-17.0) Bedside Hematocrit 41.0 % (38.0-51.0) Prothrombin Time 10.6 SEC (9.8-11.6) Prothromb Time International 1.0 RATIO Ratio Activated Partial 28.3 SEC Thromboplast Time (24.3-30.1) Bedside Sodium 141 MMOL/L (138-146) Bedside Potassium 4.5 MMOL/L (3.5-4.9) Bedside Chloride 101 MMOL/L (98-109) Bedside Blood Urea Nitrogen 16 MG/DL (8-26) Bedside Glucose 101 MG/DL (60-95) Nasal Screen MRSA (PCR) NEGATIVE (NEGATIVE) Result Diagram: 06/14/16224406/14/162244 Microbiology Microbiology Date/Time Procedure Status Source Growth 06/13/16 13:40 Aerobic Blood Culture - Preliminary Resulted Blood Peripheral NO GROWTH IN 2 DAYS 06/13/16 13:40 Anaerobic Blood Culture - Preliminary Resulted Blood Peripheral NO GROWTH IN 2 DAYS 06/13/16 13:45 Aerobic Blood Culture - Preliminary Resulted Blood Peripheral NO GROWTH IN 2 DAYS 06/13/16 13:45 Anaerobic Blood Culture - Preliminary Resulted Blood Peripheral NO GROWTH IN 2 DAYS 06/13/16 13:45 Gram Stain - Final Complete Wound Foot 06/13/16 13:45 Wound Culture - Final Complete Group D Enterococcus . Imaging Last Impressions Head Magnetic Resonance Angiography 06/15/16 0000 Signed Impressions: Service Date/Time: Wednesday, June 15, 2016 11:39 - CONCLUSION: Prominent motion artifact. No gross acute abnormality. Christo Rodrigues MD Chest X-Ray 06/15/16 0000 Signed Impressions: Service Date/Time: Wednesday, June 15, 2016 00:29 - CONCLUSION: 1. The endotracheal tube tip is located in an abnormally high location measuring approximately 10.7 cm from the candice. Consider advancement. 2. There has been a significant interval change in the appearance of the left hemithorax with marked volume loss and airspace opacity. There is associated leftward shift of the mediastinum and hyperinflation of the right lung. Given the interval change consider mucous plugging as a potential cause for the left lung collapse. Guillermo Monterroso MD Carotid Artery Ultrasound 06/15/16 0000 Signed Impressions: Service Date/Time: Wednesday, June 15, 2016 10:14 - CONCLUSION: No evidence of hemodynamically significant carotid stenosis. Christo Rodrigues MD Brain MRI 06/15/16 0000 Signed Impressions: Service Date/Time: Wednesday, June 15, 2016 11:39 - CONCLUSION: Chronic ischemic changes. No acute intracranial findings. Christo Rodrigues MD Head CT 06/14/16 0000 Signed Impressions: Service Date/Time: June 22:09 - CONCLUSION: No bleed or other acute intracranial abnormality. Report called to Dr. Holbrook at 10:21 PM. Guillermo Garrison MD Cervical Spine CT 06/13/16 1329 Signed Impressions: Service Date/Time: Monday, June 13, 2016 14:52 - CONCLUSION: Degenerative changes as described above. There is no evidence for fracture. Saeed Kaur MD FACR Foot X-Ray 06/13/16 0000 Signed Impressions: Service Date/Time: Monday, June 13, 2016 14:11 - CONCLUSION: Soft tissue swelling without clear evidence of fracture or destructive bone changes. Severe bone demineralization. 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 Vernon Almonte MD Ankle X-Ray 06/13/16 0000 Signed Impressions: Service Date/Time: Monday, June 13, 2016 14:09 - CONCLUSION: Soft tissue swelling without evidence of displaced fracture or dislocation. Significant bony demineralization. Vernon Almonte MD . Procedures * 06/15/16 intubated and later extubated. Patient/Family Conference Present at Family Conference: Spoke with [id number], Latanya via telephone. Met with patient's sister, Kim and her daughter Brooke and her daughter Patricia. Family Conference Time (mins): 75 Family Conference Location: Bedside Issues Discussed: * Palliative care role, purpose, approach * Additional medical, psychosocial, and spiritual history * Patients general health, functional status, and cognitive changes in the months leading up to the current hospitalization * Patient/family understanding of the current medical problems * Patient/family understanding of prognosis * Patients goals of care as best understood from advance directives and/or conversations and/or values * Current medical treatment options and benefits/burdens of those options * Likely scenarios comparing ongoing aggressive care with a transition to comfort measures only * Questions answered to the best of my ability * Palliative care contact information provided Met with patient's sister and nieces. Reviewed at great length the patient's trajectory of decline, concern for this decline over the past month, her overall condition including lethargy, likely continued nutritional issues, decreasing functional ability. Review of medical findings to date. Lengthy discussion regarding concern for further decline or even given her advanced age and trajectory of decline. Family is considering transition to comfort focused care with hospice support in the coming day(s) if patient doesn' t show any further improvement. They would like to take this evening to consider options and discuss further as a family. They certainly seem open to transition to comfort if she has further setbacks or no clinical improvement. They will call palliative care if they make a decision to consider hospice support, request to be notified of any clinical change. . Assessment and Plan Disease Oriented Problem List: (1) Altered mental status (2) Lower extremity cellulitis (3) Respiratory failure (4) Bilateral lower extremity edema (5) Wound infection (6) Onychogryphosis (7) Elevated CK (8) Unwitnessed fall Symptom Scale: (1) Encephalopathy 0-10 Scale: Unable to quantify (2) Dyspnea 0-10 Scale: Unable to quantify Pertinent Non-Medical Issues Psychosocial: . No children. Lives alone. Spiritual: Protestant ramsey. Legal: if no written advance directives, according to [place] statutes health care proxy decision-making would fall to the patient's sisterKim. Ethical issues impacting care: no known concerns at this time. . Important Contacts * Patricia Rg, Kim, kaleigh and sister: [phone] * Latanya Morgan, [id number] [phone] . Prognosis 85 year old female with significant trajectory of decline over the past month with decreased appetite, frequent falls, admitted with respiratory failure, cellulitis and encephalopathy. Given advanced age, falls, cellulitis, dyspnea, weakness and decreased appetite she appears hospice appropriate. Code Status: No Code (patient signed [place] DNR 04/2003, copy on chart.) Plan * According to 4 to statutes, health care proxy decision-making would fall to the patient's sisterKim. * NO CODE * Goals: Met with patient's sisterKim and nisarah, Bright. Reviewed at great length the patient's trajectory of decline, concern for this decline over the past month, her overall condition including lethargy, likely continued nutritional issues, decreasing functional ability. Review of medical findings to date. Lengthy discussion regarding concern for further decline or even given her advanced age and trajectory of decline. Family is considering transition to comfort focused care with hospice support in the coming day(s) if patient doesn't show any further improvement. They would like to take this evening to consider options and discuss further as a family. They certainly seem open to transition to comfort if she has further setbacks or no clinical improvement. They will call palliative care if they make a decision to consider hospice support, request to be notified of any clinical change. * Discussed with Dr. Morgan we agree while she does not have obvious medical explanation for decline, she appears hospice appropriate given recent trajectory of decline and advanced age. PPS 20 with prognosis of days to weeks if no significant clinical improvement. * SYMPTOMS: encephalopathy, uncertain etiology, likely multifactorial, infection , advanced age, recent respiratory failure. Dyspnea: likely underlying heart and lung disease. * Palliative care number provided. * Palliative care will continue to follow throughout hospital course to assist with symptom management further clarification of treatment goals as needed. . Time Spent Total Floor Time (mins): 90 Face to Face Time (mins): 75 >50% Counseling/Coord of Care: Yes Thank you for the opportunity to participate in the care of Ms. Mcdonald. Attestation To help prompt me to consider important information that might be impacting today's encounter and assessment, information from prior notes written by myself or my colleagues may have been "brought forward" into today's note. My signature on this note, however, is an attestation that I personally performed the exam, history, and/or decision-making noted today, and, unless otherwise indicated, the interactions with patient, family, and staff as well as the review of records all occurred today. I also attest that the listed assessment and stated plan reflect my best clinical judgment today based on the combination of historical information, prior notes, and today's exam/ interactions. When time spent is documented, it refers only to time spent today by the signer, or if indicated, combined time spent today by collaborating physician/nurse practitioner. [facility] Jun 15, 2016 15:22
--- NOTE | 2016-06-15 15:45 | MB ---
cc: LAUREN CORONADO MD DATE OF CONSULTATION: 06/15/2016 REASON FOR CONSULTATION "Brain attack." HISTORY OF PRESENT ILLNESS Ms. Mcdonald is an 85-year-old female who presented to the ED at [facility] after she fell with multiple skin tears in her lower extremities and she was confused. The patient denied seizures, loss of consciousness, weakness of extremity, slurred speech or intake of a new medication. The patient has no history of TIA or stroke or recent head injury. The patient was initially intubated when she suddenly became unresponsive and intubated in the ED for airway protection. The patient was found out to be officially made DNR/DNI, given what was found in the patient's purse, and the ICU attending extubated the patient when they found out that she was awake and following commands. REVIEW OF SYSTEMS A 12-point review of systems is negative except for what is stated in the HPI. PAST MEDICAL HISTORY Hypertension. PAST SURGICAL HISTORY Negative. ALLERGIES No known allergies. FAMILY HISTORY Noncontributory. SOCIAL HISTORY Denies alcohol or illicit drugs. She quit smoking several years ago. PHYSICAL EXAMINATION GENERAL: An awake, alert, oriented, frail elderly lady. HEENT: Atraumatic, normocephalic. [id number]. Soft tone voice. Intact vision. NECK: Supple. Trachea in the midline. No signs of meningeal irritation. HEART: Regular rate and rhythm. LUNGS: Clear to auscultation. No wheezes. EXTREMITIES: Bilateral lower extremities with multiple skin tears with edema, right more than left over the ankles and feet. NEUROLOGIC: Awake, alert, oriented to time, person and place. No nystagmus. Pupils 2-3 mm equally reacting to light. No facial asymmetry. Examination of the muscle strength with give-way due to pain but essentially no focal weakness is noted. However, there is bilateral asterixis/flapping tremor in both hands. Lower extremities she can move both lower extremities but due to pain and swelling the muscle strength cannot be accurately assessed but she moves both lower extremities, perhaps the left greater than the right especially in hip flexion and knee flexion. She had a right foot drop, questionable chronic. Reflexes 1+ bilateral symmetrical. Plantars are bilaterally downgoing. Sensory examination is conducted but not accurate because of patient's pain and lack of cooperation. LABORATORY White blood cell count 6.3, hemoglobin 12.4, MCV 80.3, platelet count 266. Sodium 139, potassium 4.9, anion gap 5, BUN 15, creatinine 0.95, calcium 9.2, AST 44, ALT 28, alkaline phosphatase 139, total CK 233, troponin 0.02, total protein 7, albumin 2.5, lactic acid 0.7. IMAGING - Head CT scan with no acute disease. - Cervical CT scan with degenerative changes. No evidence of fracture. - Head MRA with prominent motion artifact but no gross abnormality reported. - Carotid ultrasound with no evidence of hemodynamically significant carotid stenosis. - Brain MRI with chronic ischemic changes. No acute intracranial findings. DIAGNOSTIC IMPRESSION - Encephalopathy / resolved, possibly metabolic or infectious. - Multiple falls, possible etiology decompensation mechanical fall. PLAN - Neuro-checks q.4h. - Management of the medical comorbidity. - DVT prophylaxis. - Fall precautions. - PT, OT recommendations are appreciated. Thank you for the opportunity to participate in the care of your patient. Lauren Coronado MD RGO/JUANPABLO /3:03 PM /3:22 PM ADRIAN
[2016-06-15] MEDS: VANCOMYCIN 1,000 MG/NS 250 ML IV SCH ×2 (18:29)
[2016-06-15] MEDS: SODIUM CHLOR 0.9% 1000 ML INJ 1,000 ML IV SCH (18:29)
--- NOTE | 2016-06-15 19:02 | EC ---
Study Study Date:06/15/2016 STUDY CONCLUSIONS SUMMARY - Left ventricle: The cavity size was normal. Wall thickness was normal. Systolic function was normal. The estimated ejection fraction was in the range of 55% to 60%. Wall motion was normal; there were no regional wall motion abnormalities. - Aortic valve: Valve area: 2.3cm^2(VTI). Valve area: 1.63cm^2 (Vmax). - Mitral valve: Mildly calcified annulus. Mild regurgitation. - Tricuspid valve: Mild regurgitation. - Pulmonary arteries: PA peak pressure: 60mm Hg (S). Impressions: No cardiac source of emboli was indentified. If LV function is below 40, please consider prescribing an ACEI or ARB or document rationale for non-use. PROCEDURE DATA STUDY STATUS: Elective. Procedure: Transthoracic echocardiography. Image quality was good. Scanning was performed from the parasternal, apical, and subcostal acoustic windows. Study completion: The patient tolerated the procedure well. Transthoracic echocardiography. M-mode, complete 2D, complete spectral Doppler, and color Doppler. Patient status: Inpatient. CARDIAC ANATOMY LEFT VENTRICLE: The cavity size was normal. Wall thickness was normal. Systolic function was normal. The estimated ejection fraction was in the range of 55% to 60%. Wall motion was normal; there were no regional wall motion abnormalities. AORTIC VALVE: Trileaflet; normal thickness leaflets. Doppler: Transvalvular velocity was within the normal range. There was no stenosis. No regurgitation. Valve area: 2.3cm^2(VTI). Valve area: 1.63cm^2 (Vmax). Mean gradient: 12mm Hg (S). Peak gradient: 22mm Hg (S). AORTA: Aortic root: The aortic root was normal in size. MITRAL VALVE: Mildly calcified annulus. Doppler: Transvalvular velocity was within the normal range. There was no evidence for stenosis. Mild regurgitation. LEFT ATRIUM: The atrium was normal in size. RIGHT VENTRICLE: The cavity size was normal. Wall thickness was normal. PULMONIC VALVE: Doppler: Transvalvular velocity was within the normal range. There was no evidence for stenosis. No regurgitation. TRICUSPID VALVE: Structurally normal valve. Doppler: Transvalvular velocity was within the normal range. Mild regurgitation. PULMONARY ARTERY: The main pulmonary artery was normal-sized. Systolic pressure was within the normal range. RIGHT ATRIUM: The atrium was normal in size. PERICARDIUM: There was no pericardial effusion. SYSTEMIC VEINS: Inferior vena cava: The vessel was normal in size. BASIC MEASUREMENTS ADULT Normal Left ventricle LV internal dimension, ED, chordal level, *42.4 mm 43-52 PLAX LV internal dimension, ES, chordal level, 29.8 mm 23-38 PLAX Fractional shortening, chordal level, PLAX 30 % >29 LV posterior wall thickness, ED 10.4 mm IVS/LVPW ratio, ED 0.82 <1.3 Ventricular septum Septal thickness, ED 8.49 mm Aortic valve Leaflet separation 18 mm 15-26 Right ventricle RV internal dimension, ED, PLAX 33.1 mm 19-38 BASIC MEASUREMENTS ADULT Normal Aortic valve Leaflet separation 18 mm 15-26 Aorta Root diameter, ED 25 mm 20-37 Left atrium Anterior-posterior dimension, ES 32 mm 19-40 LA/aortic root ratio 1.28 DOPPLER MEASUREMENTS ADULT Normal Main pulmonary artery Pressure, S *60 mm Hg =30 Aortic valve Peak velocity, S 236 cm/s Mean velocity, S 161 cm/s VTI, S 47 cm Mean gradient, S 12 mm Hg Peak gradient, S 22 mm Hg Valve area, VTI 2.3 cm^2 Valve area, Vmax 1.63 cm^2 Tricuspid valve Regurgitant peak velocity 352 cm/s Peak RV-RA gradient, S 50 mm Hg Maximal regurgitant velocity 352 cm/s Systemic veins Estimated CVP 10 mm Hg Right ventricle RV pressure, S *60 mm Hg <30 LEGEND: Mean values are shown as u=mean value. Asterisk (*) duarte values outside specified normal range. Prepared and signed by Paris Alexis [id number]
[2016-06-15 20:44] LABS: AUTOMATED NEUTROPHIL # 6.1 TH/MM3 (1.8-7.7); BASOPHIL % 0.5 % (0.0-2.0); EOSINOPHIL # 0.1 TH/MM3 (0-0.4); EOSINOPHIL % 1.1 % (0.0-4.0); HEMATOCRIT 39.1 % (35.0-46.0); HEMO FLAGS DIFF FINAL; LYMPH % 6.5 % (9.0-44.0); LYMPHOCYTE # 0.5 TH/MM3 (1.0-4.8); MEAN CELL VOLUME 83.1 FL (80.0-100.0); MEAN CORPUSCULAR HEMOGLOBIN 26.5 PG (27.0-34.0); MEAN CORPUSCULAR HGB CONC 31.9 % (32.0-36.0); MONO % 7.6 % (0.0-8.0); NEUT % 84.3 % (16.0-70.0); PLATELET COUNT 223 TH/MM3 (150-450); RED BLOOD COUNT 4.71 MIL/MM3 (4.00-5.30); RED CELL DISTRIBUTION WIDTH 15.6 % (11.6-17.2); WHITE BLOOD COUNT 7.2 TH/MM3 (4.0-11.0)
[2016-06-15 21:08] LABS: ANION GAP 3 MEQ/L (5-15); AST (GOT) 29 U/L (15-37); BICARBONATE 34.7 MEQ/L (21.0-32.0); BLOOD UREA NITROGEN 14 MG/DL (7-18); CHLORIDE 106 MEQ/L (98-107); GLOMERULAR FILTRATION RATE 83 ML/MIN (>89); POTASSIUM 4.7 MEQ/L (3.5-5.1); SODIUM (NA) 144 MEQ/L (136-145)
[2016-06-15 21:12] LABS: ALKALINE PHOSPHATASE 116 U/L (45-117); ALT (GPT) 24 U/L (10-53); TOTAL BILIRUBIN ADULT 0.3 MG/DL (0.2-1.0)
--- NOTE | 2016-06-15 22:03 | HHI.HCPN ---
Call from family to report they have been talking and they are certain patient would not want to continue aggressive care. She would not find any quality of life less than prior life of independence acceptable. They report she recently told her sister in law, Latanya that she has made her arrangements. They do not feel she would not want feeding tube or for life to be prolonged artificially. SisterKim (HCP) desires hospice consult and hopes to bring patient to [facility] ([facility] if possible) for management of dyspnea and agitation. Code Status: No Code (patient signed [place] DNR 04/2003, copy on chart.) Plan * According to 4 to statutes, health care proxy decision-making would fall to the patient's sisterKim. * NO CODE * Call from family 8:30pm: The family sister, sister in law and nieces have been talking and have decided the patient would want comfort focused care. They have requested Hospice consult. They have requested [facility] and possible [facility] for management of dyspnea. . * Hospice consulted. * SYMPTOMS: encephalopathy, uncertain etiology, likely multifactorial, infection , advanced age, recent respiratory failure. Dyspnea: likely underlying heart and lung disease. * Palliative care will continue to follow throughout hospital course to assist with symptom management further clarification of treatment goals as needed. [facility] Jun 15, 2016 22:03
[2016-06-16] VITALS (10 sets, daily range): BP systolic 95–114; BP diastolic 51–59; PULSE 77–112; RESP 21–31; TEMP 97.6–98.5; O2SAT 95–97
[2016-06-16] MEDS: HEPARIN SODIUM - SQ 10,000 UNITS/ML VIAL SQ SCH ×2 (01:07→10:00)
--- NOTE | 2016-06-16 04:02 | RADRPT ---
EXAM DATE/TIME: 06/16/2016 03:18 [place] COMPARISON: CHEST SINGLE AP, June 15, 2016, 0:29. INDICATIONS : Shortness of breath, possible pulmonary disease. MEDICAL HISTORY : Renal insufficiency. SURGICAL HISTORY : ORIF right ankle ENCOUNTER: Subsequent ACUITY: 2 days PAIN SCORE: 0/10 LOCATION: Bilateral chest FINDINGS: Portable AP view of the chest demonstrates complete opacification left hemithorax with leftward shift of the mediastinum. Right lung is hyperinflated. There is a new right basilar pleural-parenchymal op acity. No pneumothorax is appreciated. CONCLUSION: 1. Complete opacification left hemithorax with loss of the small area of previously aerated lung in t he left midlung zone. This is likely secondary to collapse the left lung given the leftward shift of the mediastinum. 2. New small right basilar opacity likely representing pleural effusion with associated volume loss a nd/or consolidation. Guillermo Monterroso MD on June 16, 2016 at 3:59 Board Certified Radiologist. This report was verified electronically.
[2016-06-16] MEDS: INSULIN NovoLIN REGULAR SUPPLEMENTAL SCALE SQ SCH ×2 (04:41→11:00)
[2016-06-16] MEDS: SODIUM CHLOR 0.9% 1000 ML INJ 1,000 ML IV SCH (04:42)
[2016-06-16 06:17] LABS: AUTOMATED NEUTROPHIL # 6.5 TH/MM3 (1.8-7.7); BASOPHIL % 0.4 % (0.0-2.0); EOSINOPHIL % 0.2 % (0.0-4.0); HEMATOCRIT 38.9 % (35.0-46.0); HEMO FLAGS DIFF FINAL; LYMPH % 4.4 % (9.0-44.0); LYMPHOCYTE # 0.3 TH/MM3 (1.0-4.8); MEAN CELL VOLUME 83.6 FL (80.0-100.0); MEAN CORPUSCULAR HEMOGLOBIN 26.1 PG (27.0-34.0); MEAN CORPUSCULAR HGB CONC 31.2 % (32.0-36.0); MONO % 6.8 % (0.0-8.0); NEUT % 88.2 % (16.0-70.0); PLATELET COUNT 240 TH/MM3 (150-450); RED BLOOD COUNT 4.65 MIL/MM3 (4.00-5.30); RED CELL DISTRIBUTION WIDTH 15.6 % (11.6-17.2); WHITE BLOOD COUNT 7.4 TH/MM3 (4.0-11.0)
[2016-06-16 06:36] LABS: ANION GAP 3 MEQ/L (5-15); AST (GOT) 26 U/L (15-37); BICARBONATE 31.7 MEQ/L (21.0-32.0); BLOOD UREA NITROGEN 15 MG/DL (7-18); CHLORIDE 107 MEQ/L (98-107); GLOMERULAR FILTRATION RATE 88 ML/MIN (>89); POTASSIUM 5.1 MEQ/L (3.5-5.1); SODIUM (NA) 142 MEQ/L (136-145)
[2016-06-16 06:38] LABS: ALKALINE PHOSPHATASE 114 U/L (45-117); ALT (GPT) 22 U/L (10-53); TOTAL BILIRUBIN ADULT 0.4 MG/DL (0.2-1.0)
[2016-06-16] MEDS: DOCUSATE SODIUM 100 MG CAP PO SCH (09:00)
[2016-06-16] MEDS: SODIUM CHLORIDE 0.9% FLUSH 5 ML FLUSH FLUSH SCH (09:00)
--- NOTE | 2016-06-16 11:43 | HHI.PR ---
Subjective Remarks Patient lethargic on oxygen mask 8 L, she does not answer question Family at the bedside, discussed with them, the sister who is the POA discussed with the palliative care and agree on hospice patient will be discharged to hospice center today Objective Vitals Vital Signs Date Time Temp Pulse Resp B/P Pulse Ox O2 Delivery O2 Flow Rate FiO2 06/16/16 10:00 106 06/16/16 09:23 95 Simple Mask 6.00 06/16/16 08:00 105 06/16/16 08:00 98.5 105 21 95/52 96 06/16/16 07:00 94 Simple Mask 6.00 06/16/16 06:00 77 06/16/16 04:00 98.5 105 22 104/51 97 06/16/16 04:00 77 06/16/16 02:00 107 06/16/16 00:00 107 06/16/16 00:00 98.5 112 22 114/59 97 06/15/16 22:00 107 06/15/16 21:10 96 Simple Mask 6.00 06/15/16 20:00 97.9 107 22 128/59 97 06/15/16 20:00 107 06/15/16 20:00 93 Simple Mask 6.00 06/15/16 18:00 104 06/15/16 16:00 97.8 102 23 131/62 97 06/15/16 16:00 90 06/15/16 14:00 90 06/15/16 12:45 97.5 96 18 112/58 99 I/O 06/15/16 06/15/16 06/15/16 06/16/16 06/16/16 06/16/16 07:00 15:00 23:00 07:00 15:00 23:00 Intake Total 125 ml 475 ml Output Total 200 ml 450 ml 350 ml Balance -200 ml -325 ml 125 ml IV Total 125 ml 475 ml Output Urine Total 200 ml 450 ml 350 ml # Bowel Movements 0 Result Diagram: 06/16/1638 06/16/16537 Objective Remarks - GENERAL: Rose elderly patient on oxygen mask, lethargic SKIN: No rashes, ecchymoses or lesions. Cool and dry. HEAD: Atraumatic. Normocephalic. No temporal or scalp tenderness. EYES: Pupils equal round and reactive. Extraocular motions intact. No scleral icterus. No injection or drainage. ENT: Nose without bleeding, purulent drainage or septal hematoma. Throat without erythema, tonsillar hypertrophy or exudate. Uvula midline. Airway patent. NECK: Trachea midline. No JVD or lymphadenopathy. Supple, nontender, no meningeal signs. CARDIOVASCULAR: Regular rate and rhythm without murmurs, gallops, or rubs. RESPIRATORY: Positive wheezes, and crackles GASTROINTESTINAL: Abdomen soft, non-tender, nondistended. No hepato-splenomegaly , or palpable masses. No guarding. MUSCULOSKELETAL: Bilateral lower extremity with multiple skin tear, +1 edema, toenail clipped by podiatry NEUROLOGICAL: Lethargic. Moves all extremities A/P Assessment and Plan Acute respiratory failure mostly mucous plugs, prognosis guarded, family decided on hospice Status post fall resulted in bilateral lower extremity wound, skin tear Multiple Ingrown nails worst is the right toe status post clipping by podiatry Mild rhabdo mostly due to the fall CPK 132>> trending down Subjective history of diuretic use ? Heart failure however BMP within normal limit Increase AST /ALT almost 2:1 denied abusing alcohol will check alcohol level DVT prophylaxis with heparin Plan: Status post temporary intubation, patient is a DNR, respiratory failure, family decided on hospice Status post podiatry consultation, status post antibiotic, wound care, wound cultures showed group D streptococcus Appreciate Wound Care and podiatry help Vasotec as needed hemoglobin A1c within normal limits, Accu-Chek to monitor blood sugar Meena Reilly MD Jun 16, 2016 11:43
[2016-06-16] MEDS ORDERED: ACET325T PO (15:27)
[2016-06-16] MEDS ORDERED: HEPA10003 SQ (15:27)
--- NOTE | 2016-06-16 15:35 | HHI.DS ---
Discharge Summary Admission Date Jun 15, 2016 at 12:55 Discharge Date: Jun 16, 2016 Admitting Diagnosis altered mental status, wound infection, unwitnessed fall, (1) Onychogryphosis ICD Code: L60.2 (2) Wound infection ICD Code: T14.8 (3) Bilateral lower extremity edema ICD Code: R60.0 (4) Respiratory failure ICD Code: J96.90 Procedures Nail clipping type podiatry Intubation and extubation Brief History - From Admission 85 years old female who lives by herself, relatively poor historian, presented to the ED with a complaint of multiple skin tear on her lower extremity mostly on the right, after she falls from her walker. Patient is oriented to the month but not the year, also to the person but the place. Her [id number] was at the bedside. Patient denied losing consciousness, hitting her head, no fever or chills, no chest pain or short of breath. She told me she takes water pills for her blood pressure and leg swelling but denied heart failure, also denied any history of coronary artery disease, heart catheter. No abdominal pain diarrhea constipation dysuria urgency or frequency CBC/BMP: 06/16/16 0538 06/16/16 0538 Significant Findings Laboratory Tests Test 06/14/16 06/14/16 06/15/16 06/16/16 07:48 22:45 20:22 05:38 Hemoglobin 11.2 GM/DL (11.6-15.3) Mean Corpuscular Hemoglobin 25.8 PG 25.9 PG 26.5 PG 26.1 PG (27.0-34.0) (27.0-34.0) (27.0-34.0) (27.0-34.0) Mean Corpuscular Hemoglobin 31.7 % 31.9 % 31.9 % 31.2 % Concent (32.0-36.0) (32.0-36.0) (32.0-36.0) (32.0-36.0) Neutrophils (%) (Auto) 79.8 % 83.3 % 84.3 % 88.2 % (16.0-70.0) (16.0-70.0) (16.0-70.0) (16.0-70.0) Lymphocytes (%) (Auto) 7.9 % 6.5 % 6.5 % 4.4 % (9.0-44.0) (9.0-44.0) (9.0-44.0) (9.0-44.0) Monocytes (%) (Auto) 9.1 % (0.0-8.0) 8.3 % (0.0-8.0) Lymphocytes # (Auto) 0.5 TH/MM3 0.5 TH/MM3 0.5 TH/MM3 0.3 TH/MM3 (1.0-4.8) (1.0-4.8) (1.0-4.8) (1.0-4.8) Carbon Dioxide Level 34.3 MEQ/L 34.7 MEQ/L (21.0-32.0) (21.0-32.0) Estimat Glomerular Filtration 60 ML/MIN (>89) 62 ML/MIN (>89) 83 ML/MIN (>89) 88 ML/MIN (>89) Rate Bedside Glucose 101 MG/DL (60-95) Anion Gap 3 MEQ/L (5-15) 3 MEQ/L (5-15) Total Protein 6.3 GM/DL (6.4-8.2) Albumin 2.0 GM/DL 2.0 GM/DL (3.4-5.0) (3.4-5.0) PE at Discharge - GENERAL: Rose elderly patient on oxygen mask, lethargic SKIN: No rashes, ecchymoses or lesions. Cool and dry. HEAD: Atraumatic. Normocephalic. No temporal or scalp tenderness. EYES: Pupils equal round and reactive. Extraocular motions intact. No scleral icterus. No injection or drainage. ENT: Nose without bleeding, purulent drainage or septal hematoma. Throat without erythema, tonsillar hypertrophy or exudate. Uvula midline. Airway patent. NECK: Trachea midline. No JVD or lymphadenopathy. Supple, nontender, no meningeal signs. CARDIOVASCULAR: Regular rate and rhythm without murmurs, gallops, or rubs. RESPIRATORY: Positive wheezes, and crackles GASTROINTESTINAL: Abdomen soft, non-tender, nondistended. No hepato-splenomegaly , or palpable masses. No guarding. MUSCULOSKELETAL: Bilateral lower extremity with multiple skin tear, +1 edema, toenail clipped by podiatry NEUROLOGICAL: Lethargic. Moves all extremities Hospital Course 85 years old female admitted for bilateral lower extremity wound and skin tear after she fell on her walker, she had multiple ingrown nails, patient started on antibiotic, podiatry consulted, as well as wound care, nails got clipped, patient is hard of hearing, PT recommended rehabilitation , while we wear in the process of placement patient become unresponsive, with respiratory failure she got intubated and then extubated, mostly mucous plugs, since she is DNR she was not reintubated again, her respiratory status continued to deteriorate she is continent currently on nonrebreather mask, palliative care consulted, discussed with the family the system as the POA decided for hospice facility transfer. I discussed with leather case finisher, family, hospice agent [id number] encounter performed with the patient on discharge day, as well as physical exam, summary of hospitalization course and postdischarge plan has been D/W the patient. D/W nurse D/W leather case finisher. Discharge medications reviewed and printed and signed, post discharge follow up visit with PCP and other specialist as well as Brief hospital course and discharge summary has been placed. Pt Condition on Discharge: Deteriorating Discharge Disposition: Hospice/Med Facility Discharge Time: > 30 minutes Discharge Instructions DIET: Follow Instructions for: Heart Healthy Diet Activities you can perform: Continue Bedrest New Medications: Acetaminophen (Acetaminophen) 325 Mg Tab 650 MG PO Q4H PRN TEMP > 100.4 #30 TAB Heparin Sodium (Porcine) (Heparin Sodium) 10,000 Unit/Ml Inj 5000 UNITS SQ Q8H dvt proph Days 28 INJECTION Hydrocodone-Acetaminophen (Hydrocodone-Acetaminophen) 5-325 mg Tab 1 TAB PO Q4H PRN PAIN SCALE 3 TO 5 #25 TAB Meena Reilly MD Jun 16, 2016 15:35
[2016-06-16] MEDS ORDERED: PHARMACY ORDERED LAB XX ONE (17:45)
== END 2016-06-16 17:40 | disposition hospice, inpatient (51) | DRG 602 ==
LOC: NEDAMB 11:48 → NEDA 16:12 → INTOOBSV 16:12 → NEDA 20:02 → NEDH 20:06 → NEPGCP 21:31 → HIMN 06-15 00:35 → OBSVTOIN 06-15 12:55
PROVIDERS: ADMIT Hospitalist; ATTEND Hospitalist
PROC: 0BH17EZ Insertion of Endotracheal Airway into Trachea, Via Natural or Artificial Opening (ICD-10-PCS; principal; 2016-06-15)
DX: L03.115 Cellulitis of right lower limb (principal); J96.90 Respiratory failure, unspecified, unspecified whether with hypoxia or hypercapnia; G93.40 Encephalopathy, unspecified; M62.82 Rhabdomyolysis; R62.7 Adult failure to thrive; S91.301A Unspecified open wound, right foot, initial encounter; J44.9 Chronic obstructive pulmonary disease, unspecified; R29.6 Repeated falls; W01.0XXA Fall on same level from slipping, tripping and stumbling without subsequent striking against object, initial encounter; L60.2 Onychogryphosis; Y92.009 Unspecified place in unspecified non-institutional (private) residence as the place of occurrence of the external cause; B95.2 Enterococcus as the cause of diseases classified elsewhere; Z66 Do not resuscitate; R41.82 Altered mental status, unspecified; L60.0 Ingrowing nail; I10 Essential (primary) hypertension; R60.0 Localized edema; M20.40 Other hammer toe(s) (acquired), unspecified foot; Z86.73 Personal history of transient ischemic attack (TIA), and cerebral infarction without residual deficits; Z87.891 Personal history of nicotine dependence
CPT/HCPCS: 70450; 70544; 70551; 71010; 72125; 73610; 73630; 80048; 80053; 80076; 80320; 81001; 82435; 82550; 82552; 82565; 82947; 82948; 83036; 83605; 83880; 84132; 84295; 84484; 84520; 85025; 85610; 85730; 86403; 87040; 87070; 87205; 87641; 93005; 93306; 93880; 94002; 94667; 94668; G0378; J1644; J2543; J3370; J7030; J7050